=== PATIENT | male | born 1935 | race Caucasian/White ===

== ENCOUNTER 2018-07-16 08:30 | Emergency (ER) | payer MEDICARE ==
--- NOTE | 2018-07-16 09:21 | RAD ---
2 VIEWS OF ABDOMEN: Date: 07/16/18 COMPARISON: None. HISTORY: Left-sided flank pain. FINDINGS: Supine and decubitus views of the abdomen show a nonspecific, nonobstructed bowel gas pattern. No joel e air or air fluid levels are seen on decubitus film. No suspicious calcifications are present. IMPRESSION: Nonobstructed bowel gas pattern. POS: [facility]
[2018-07-16] MEDS ORDERED: Bisacodyl 10 MG SUPP ONE (10:28)
[2018-07-16] MEDS ORDERED: Lidocaine Viscous Sol 2% 15 ml UD Cup ONE (10:28)
[2018-07-16] MEDS ORDERED: Magnesium Citrate 300 ML BOT ONE (12:38)
== END 2018-07-16 13:49 | disposition home or self-care (01) ==
LOC: ERS 08:30
DX: K59.00 Constipation, unspecified (principal); I25.2 Old myocardial infarction; I11.0 Hypertensive heart disease with heart failure; I50.9 Heart failure, unspecified; Z79.899 Other long term (current) drug therapy
CPT/HCPCS: 74019; 93005

== ENCOUNTER 2018-09-10 09:07 | Inpatient (IN) | payer MEDICARE, MEDICAID ==
--- NOTE | 2018-09-10 09:52 | RAD ---
CHEST 1 VIEW: Date: 09/10/18 HISTORY: Chest pain. COMPARISON: None. FINDINGS: Heart size is markedly enlarged. AICD/pacer is in place. No pneumothorax. No large effusion. Likely a sliding hiatal hernia. Extensive osteolytic foci are present throughout the medullary cavity and involving the cortices of b oth humeri, as well as the clavicles. IMPRESSION: 1. Marked cardiomegaly. 2. Numerous lytic foci throughout both humeri and clavicles. This can be seen with multiple myeloma. Workup is recommended. POS: H
[2018-09-10 10:06] LABS: #Lymphocytes 1.4 thou/uL (1.20-3.40); #Monocytes 0.3 thou/uL (0.11-0.59); #Neutrophils 2.7 thou/uL (1.40-6.50); %Basophils 0.1 % (0.0-1.0); %Eosinophils 0.6 % (0.0-10.0); %Lymphocytes 31.5 % (21.0-51.0); %Neutrophils 60.8 % (42.0-75.0); Hemoglobin 9.7 g/dL (14.0-18.0); Mean Corpuscular HGB CONC 33.5 g/dL (32.0-36.0); Mean Corpuscular Hemoglobin 34.8 pg (27.0-31.0); Red Blood Cell (RBC) Count 2.78 mill/uL (4.70-6.10); White Blood Cell (WBC) Count 4.4 thou/uL (4.8-10.8)
[2018-09-10 10:11] LABS: MDiff Complete? YES; Platelet Morphology Comment Appears Decreased; Polychromasia SLIGHT = 2-3 cells (100X) (0-2/hpf); Rouleaux Formation SLIGHT = 1-5 cells (100X) (None Seen)
[2018-09-10 10:12] LABS: Mean Platelet Volume 8.7 fL (7.4-10.4); Platelet Count 105 thou/uL (130-400); RBC Distribution Width 15.5 % (11.5-14.5)
[2018-09-10 10:22] LABS: ALT (SGPT) 11 U/L (8-55); AST (SGOT) 19 U/L (5-34); Albumin 2.8 g/dL (3.4-4.8); Alkaline Phosphatase 63 U/L (40-150); Anion Gap 18 mmol/L (10-20); BUN (Urea Nitrogen) 44 mg/dL (8.4-25.7); Bilirubin, Total 0.5 mg/dL (0.2-1.2); CK (CPK) 23 U/L (30-200); Calc. Creatinine Clearance 0 mL/min (70-130); Carbon Dioxide 22 mmol/L (23-31); Chloride 100 mmol/L (98-107); Estimated GFR-MDRD 39; Globulin 6.6 g/dL (2.4-3.5); Glucose 108 mg/dL (83-110); Lipase 22 U/L (8-78); Potassium 4.2 mmol/L (3.5-5.1); Protein, Total 9.4 g/dL (5.8-8.1); Sodium 136 mmol/L (136-145)
[2018-09-10 10:28] LABS: Calcium 12.5 mg/dL (7.8-10.44)
[2018-09-10 10:42] LABS: CKMB 1.2 ng/mL (0-6.6)
[2018-09-10] MEDS ORDERED: Nitroglycerin 0.4 MG TAB (25 Tab Bottle) PO PRN (11:01)
--- NOTE | 2018-09-10 11:49 | HP ---
PRIMARY CARE PROVIDER: None. CHIEF COMPLAINT: Chest pain. HISTORY OF PRESENT ILLNESS: Mr. Jacobo is a pleasant 83-year-old gentleman, who was seen at [facility] on September 10, 2018. He moved here from [place] a couple of months ago. He is a resident at [facility]. He reports that he is currently establishing care with a cigar brander, but he is unable to recall the name of the cigar brander and has not seen the cigar brander yet. He was also told to see Dr[facility], but he is not aware as to why. He reports that over the last 2 months his weight went from 174 pounds to 117 pounds. Today, he developed left-sided chest pain. He describes it as sharp, like an electrical impulse, 7/10, only occurring with movement or reaching out and nonradiating. He reports that it improves if he is not moving around. He denies any shortness of breath, fevers, or chills. He denies any nausea or vomiting. He denies any other complaints. REVIEW OF SYSTEMS: All other systems reviewed and found to be negative. PAST MEDICAL HISTORY: Congestive heart failure, myocardial infarction, gastroesophageal reflux disease, benign prostate hypertrophy, and spinal fractures. PAST SURGICAL HISTORY: Coronary artery bypass graft surgery, 5 vessels; AICD placement, 10 months ago in [place]; bilateral rotator cuff repair. SOCIAL HISTORY: Occasional alcohol use. No tobacco use or recreational drug use. FAMILY HISTORY: No family history of malignancy. CODE STATUS: I discussed his code status. He is full code. ALLERGIES: OPIOIDS. CURRENT MEDICATIONS: 1. Metoprolol tartrate 25 mg daily. 2. Docusate 2 capsules 2 times a day. 3. Multivitamins 1 tablet daily. 4. Arginaid powder 2 g daily. 5. Vitamin C 500 mg 2 times daily. 6. Nexium 20 mg daily. 7. Entresto 12/23 mg 2 times a day. 8. Tamsulosin 0.4 mg daily. 9. Aspirin 81 mg daily. PHYSICAL EXAMINATION: GENERAL: On examination, Mr. Jacobo is awake and alert, not in acute distress. VITAL SIGNS: Blood pressure is 94/62, pulse 72, respiratory rate 13, and oxygen saturation 100% on room air. He is afebrile. EYES: No scleral icterus. No conjunctival pallor. ENT: Moist mucosal membranes. No oropharyngeal erythema or exudates. NECK: Supple and nontender. Trachea is midline. RESPIRATORY: Accessory muscles of breathing are not active. Chest wall movements are symmetric bilaterally. Lungs are clear to auscultation without wheeze, rhonchi, or crepitations. CARDIOVASCULAR: S1 and S2 are heard, regular. Peripheral pulses palpable. No carotid bruit. No pericardial rub. He has reproducible left chest wall tenderness. ABDOMEN: Soft and nontender. Bowel sounds are heard. No hepatomegaly. No splenomegaly. MUSCULOSKELETAL: Reproducible chest wall tenderness. The patient has power of 5/5 in all 4 extremities. SKIN: No rashes or subcutaneous nodules. LYMPHATIC: No cervical lymphadenopathy. PSYCHIATRIC: Normal mood and normal affect. The patient is oriented to person, place, and time. LABORATORY DATA: Mr. Jacobo's labs and investigations were reviewed. I reviewed his electrocardiogram, which shows electronic ventricular paced rhythm and no ST changes to suggest an acute coronary syndrome. I also reviewed his chest x-ray, which shows cardiomegaly and numerous lytic foci throughout both humeri and clavicles. He has pancytopenia with white count of 4400, macrocytic anemia with hemoglobin 9.7, and thrombocytopenia with platelet count of 105. He also has slight rouleaux formation. Sodium and potassium are normal. Creatinine is elevated at 1.69, corrected calcium for albumin is elevated at 13.5, and albumin is decreased at 2.8. Total bilirubin, AST, ALT, and alkaline phosphatase are normal. Troponin I is indeterminate at 0.046. BNP is elevated at 920. Lipase is normal at 22. ASSESSMENT AND PLAN: Mr. Jacobo is a pleasant 83-year-old gentleman, who was seen at [facility] on September 10, 2018. His problem list includes: 1. Chest pain: His chest pain is very atypical for coronary artery disease. It is reproducible with palpation, most likely secondary to bone lesions from suspected multiple myeloma. We will recheck his troponin. We will monitor him on telemetry. We will also consult Cardiology Service since the patient is wishing to establish cardiology care in this area. 2. Multiple myeloma: Suspected. We will check skeletal survey. We will consult Oncology Service for opinion and help with management. 3. Hypercalcemia: The patient has a history of congestive heart failure. Therefore, I am unable to give him aggressive intravenous fluids. We will administer zoledronic acid as well as calcitonin and recheck his calcium level. 4. Gastroesophageal reflux disease: Appears to be stable. Continue proton pump inhibitor. 5. Benign prostate hypertrophy: Appears to be stable. 6. Pancytopenia: The patient will need investigations to rule out malignancy. Many thanks for allowing me to participate in Mr. Jacobo's care. Please feel free to contact me with any questions or concerns. LEVEL OF RISK: High. LEVEL OF COMPLEXITY: High. Job ID: [id number]
[2018-09-10] MEDS ORDERED: Zoledronic Acid 4 MG in Sodium Chloride 0.9% 100 ML IVPB SCH (12:00)
[2018-09-10] MEDS ORDERED: Calcitonin,Salmon,Synthetic 200 UNITS/ML SC SCH (12:00)
--- NOTE | 2018-09-10 13:30 | RAD ---
BONE SURVEY: INDICATIONS: Multiple myeloma. TECHNIQUE: Total of 20 images. FINDINGS: The images of the skull show no focal lytic process. The images of the cervical, thoracic, and lumbar spine obtained. There are compression deformities i nvolving the lower thoracic and lumbar spine. Prominent degenerative changes. Grade 1 spondylolisth esis with loss of disk space at L5-S1. Mild areas of lucency involving the thoracic and lumbar verte brae may represent changes of multiple myeloma. The upper extremities are obtained. Images of both humeri show numerous focal lytic lesions involvin g the proximal mid humerus bilaterally, consistent with changes of multiple myeloma. There are lytic lesions involving the proximal ulna on the right and probably in the proximal ulna on the left, cons istent with multiple myeloma. AP pelvis shows numerous areas of lytic foci involving the bony pelvis and hip, consistent with multi ple myeloma. Bilateral femurs reveal numerous lytic lesions involving the proximal and mid femurs, which would be consistent with the history of multiple myeloma. The tibia and fibula show lytic process involving the proximal and mid left tibia. IMPRESSION: There are numerous lytic lesions seen throughout the skeletal system, most pronounced involving the p roximal humeri, femurs, and bony pelvis. Findings would be consistent with the history of multiple m yeloma. POS: [facility]
[2018-09-10 16:29] LABS: Troponin I 0.036 ng/mL (< 0.028)
[2018-09-10 20:07] VITALS: BMI 20.9
[2018-09-10] MEDS: Metoprolol Tartrate 25 MG TAB PO SCH (20:12)
--- NOTE | 2018-09-10 22:40 | CON ---
DATE OF CONSULTATION: REASON FOR CONSULTATION: Multiple myeloma. HISTORY OF PRESENT ILLNESS: Mr. Jacobo is an 83-year-old gentleman, who was seen by Dr. Gallo on September 04, 2018 for pancytopenia and elevated protein. He had a serum protein electrophoresis done on a recent hospitalization that showed an M spike of 2.4. Random urine specimen detected a monoclonal protein. He had a quantitative immunoglobulins and IgA was markedly elevated at 4339. He was diagnosed with IgA multiple myeloma. He was due for a bone marrow biopsy to confirm diagnosis. This was scheduled in our clinic for tomorrow. Today, he presented to the emergency room with chest pain. He does have a significant history of coronary artery disease and CO. He also has a defibrillator in place with a recent EF of 25% to 30%. He is being admitted for cardiac workup. In the emergency room today, his white count was 4.4, hemoglobin was 9.7, and platelet count was 105,000. His creatinine was elevated at 1.69, calcium was 12.5, BNP was 920.5. His total protein was 9.4, albumin 2.8, globulin 6.6. He did receive gentle hydration and received a dose of calcitonin and Zometa. Currently, he complains of chest discomfort and back pain. PAST MEDICAL HISTORY: 1. Hypertension. 2. Myocardial infarction. 3. Coronary artery disease. 4. Hyperlipidemia. 5. Arthritis. 6. Asthma. 7. Anemia. 8. GERD. 9. Chronic back pain with compression fractures. PAST SURGICAL HISTORY: 1. Defibrillator placement. 2. CABG. 3. Right shoulder rotator cuff repair. ALLERGIES: OPIOIDS. HOME MEDICATIONS: 1. Amlodipine 2.5 mg daily. 2. Aspirin 81 mg daily. 3. Esomeprazole 20 mg daily. 4. Lisinopril 20 mg daily. 5. Metoprolol tartrate 50 mg daily. 6. Flomax 0.4 mg daily. FAMILY HISTORY: No family history of blood disorder or cancer. SOCIAL HISTORY: , has 1 child. Resides in skilled nursing. No alcohol, tobacco, or illicit drug use. 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 REVIEW OF SYSTEMS: Positive for chest pain, palpitations, back pain. PHYSICAL EXAMINATION: VITAL SIGNS: Temperature is 97.4, pulse is 74, respiratory rate 16, blood pressure is 117/68, and sats 94% on room air. GENERAL: This is a chronically ill-appearing male, in no acute distress. HEENT: Normocephalic and atraumatic. Pupils are equal and reactive to light. NECK: Supple. CV: Regular rate and rhythm. He has a defibrillator in his left chest wall. LUNGS: Clear anterior. ABDOMEN: Soft and nontender. There is no organomegaly. Bowel sounds are positive. EXTREMITIES: No clubbing, cyanosis, or edema. SKIN: No rash. HEMATOLOGICAL: There is no petechiae or purpura. NEUROLOGIC: Nonfocal. PSYCH: The patient is alert and oriented and appropriate. PERTINENT LABS AND X-RAYS: Per HPI. His skeletal survey showed lytic lesions throughout, most pronounced in the proximal humeri, femur, and pelvis. ASSESSMENT: 1. IgA multiple myeloma. 2. Chest pain. 3. Hypercalcemia secondary to lytic lesions. 4. Pancytopenia secondary to newly diagnosed myeloma. DISCUSSION: The patient will be admitted for chest pain and once this workup is completed and the patient is stable, would recommend getting a bone marrow biopsy to confirm his myeloma diagnosis. His hypercalcemia has been treated with Zometa and calcitonin. We would continue supportive care at this time. Thank you for the consult. We will follow his hospital course. Job ID: [id number]
[2018-09-11 06:57] LABS: #Lymphocytes 0.9 thou/uL (1.20-3.40); #Monocytes 0.3 thou/uL (0.11-0.59); #Neutrophils 2.7 thou/uL (1.40-6.50); %Basophils 0.1 % (0.0-1.0); %Eosinophils 0.2 % (0.0-10.0); %Lymphocytes 22.8 % (21.0-51.0); %Monocytes 7.8 % (0.0-10.0); %Neutrophils 69.1 % (42.0-75.0); Hemoglobin 9.1 g/dL (14.0-18.0); Mean Corpuscular HGB CONC 33.4 g/dL (32.0-36.0); Mean Corpuscular Hemoglobin 34.2 pg (27.0-31.0); Mean Platelet Volume 9.1 fL (7.4-10.4); Platelet Count 108 thou/uL (130-400); RBC Distribution Width 15.4 % (11.5-14.5); Red Blood Cell (RBC) Count 2.65 mill/uL (4.70-6.10); White Blood Cell (WBC) Count 3.9 thou/uL (4.8-10.8)
[2018-09-11 07:23] LABS: Anion Gap 16 mmol/L (10-20); BUN (Urea Nitrogen) 36 mg/dL (8.4-25.7); Calc. Creatinine Clearance 34 mL/min (70-130); Calcium 11.1 mg/dL (7.8-10.44); Carbon Dioxide 26 mmol/L (23-31); Chloride 101 mmol/L (98-107); Estimated GFR-MDRD 54; Glucose 96 mg/dL (83-110); Potassium 3.8 mmol/L (3.5-5.1); Sodium 139 mmol/L (136-145)
[2018-09-11] MEDS: Metoprolol Tartrate 25 MG TAB PO SCH ×2 (09:12→20:20)
[2018-09-11] MEDS: Aspirin 81 mg Enteric Coated Tablet PO SCH (09:12)
[2018-09-11] MEDS: Tamsulosin HCl 0.4 MG CAP PO SCH (09:12)
[2018-09-11] MEDS ORDERED: Bisacodyl 5 MG TAB PO PRN (09:41)
--- NOTE | 2018-09-11 12:57 | PDOC.PN ---
- Subjective Encounter Start Date: 09/11/18 Encounter Start Time: 11:00 CC; CHEST PAIN SUBJECTIVE; PATIENT SEEN AND EVAL. HE REFERS CONSTIPATION. PER NURSE, NO OTHER ACUTE EVENTS. ROS; ALL SYSTEMS ARE REVIEWED AND NEGATIVE EXCEPT FOR THE ONES MENTIONED ABOVE - Objective FULL CODE MAR Reviewed: Yes Vital Signs & Weight: Vital Signs (12 hours) Temp Pulse Resp BP Pulse Ox 09/11/18 08:00 97.6 F 74 18 110/68 97 09/11/18 03:45 96.4 F L 88 22 H 120/72 97 Weight Weight 124 lb 1.6 oz I&O: 09/10/18 09/11/18 09/12/18 06:59 06:59 06:59 Intake Total 240 Balance 240 Result Diagrams: 09/11/18 06:21 09/11/18 06:21 Radiology Reviewed by me: Yes EKG Reviewed by me: Yes Phys Exam - Physical Examination HEENT: PERRLA, moist MMs, sclera anicteric DECREASE TEMPORAL MUSCLE MASS Neck: no nodes, no JVD, supple Respiratory: no wheezing, no rales, no rhonchi, clear to auscultation bilateral Cardiovascular: RRR, no significant murmur, no rub Gastrointestinal: soft, non-tender, no distention, positive bowel sounds Musculoskeletal: no edema, pulses present DECREASED MUSCLE MASS Neurological: non-focal, normal sensation Psychiatric: normal affect, A&O x 3 Skin: no rash, normal turgor, cap refill <2 seconds Deviation from normal: GENERAL PALLOR Dx/Plan (1) Chest pain Code(s): R07.9 - CHEST PAIN, UNSPECIFIED Status: Acute Qualifiers: Chest pain type: unspecified Qualified Code(s): R07.9 - Chest pain, unspecified Plan: ATYPICAL. FREE OF PAIN. CARDIOLOGY FOLLOWS. (2) Hypercalcemia Code(s): E83.52 - HYPERCALCEMIA Status: Acute Plan: HYPERCALCEMIA OF MULTIPLE MYELOMA. NO IVF AND LASIX DUE TO CARDIOMYOPATHY. IMPROVING (3) Pancytopenia Code(s): D61.818 - OTHER PANCYTOPENIA Status: Chronic Plan: OF MULTIPLE MYELOMA. HEMATOLOGY/ONCOLOGY FOLLOWS. BONE MARROW ORDERED (4) Multiple myeloma Code(s): C90.00 - MULTIPLE MYELOMA NOT HAVING ACHIEVED REMISSION Status: Acute Plan: NEW DIAGNOSIS. SEE ABOVE (5) Lytic bone lesions on xray Code(s): M89.9 - DISORDER OF BONE, UNSPECIFIED Status: Acute Plan: NO FRACTURES. SEE ABOVE (6) CAD (coronary artery disease) Code(s): I25.10 - ATHSCL HEART DISEASE OF [place] CORONARY ARTERY W/O ANG PCTRS Status: Chronic Plan: CONTINUE HOME MEDS (7) Cardiomyopathy Code(s): I42.9 - CARDIOMYOPATHY, UNSPECIFIED Status: Chronic Plan: COMPENSATED (8) Severe malnutrition Code(s): E43 - UNSPECIFIED SEVERE PROTEIN-CALORIE MALNUTRITION Status: Chronic Plan: OF CHRONIC ILLNESS (9) Dyslipidemia Code(s): E78.5 - HYPERLIPIDEMIA, UNSPECIFIED Status: Chronic (10) Essential hypertension Code(s): I10 - ESSENTIAL (PRIMARY) HYPERTENSION Status: Chronic Plan: AT GOAL (11) Constipation Code(s): K59.00 - CONSTIPATION, UNSPECIFIED Status: Acute Plan: OF HYPERCALCEMIA. LAXATIVES - Plan cont current plan of care LAXATIVES FOR CONSTIPATION. CONTINUE BP CONTROL. NO IVF AND LASIX FOR HYPERCALCEMIA DUE TO COMPENSATED CARDIOMYOPATHY. CODE; FULL CORE; SCD DISP; TELEMETRY PROG; GUARDED. BACK TENDER [employer] POOR CLINICAL STATUS; GUARDED EXPECTED DISCHARGE; TO BE DETERMINED TOTAL TIME SPENT; 35 MINUTES DATE OF SERVICE; 09/11/2018
--- NOTE | 2018-09-11 14:01 | CON ---
DATE OF CONSULTATION: 09/11/2018 REASON FOR CONSULTATION: ICD discharge and chest pain. HISTORY OF PRESENT ILLNESS: Mr. Jacobo is a very pleasant 83-year-old gentleman, who recently moved from [place]. His history is somewhat vague. It is difficult to pinpoint details to his previous cardiac history. He states he has had CABG x5, 22 years ago. He also states he underwent coronary angiography within the last several months and stated all of his grafts were open. He also states he has had ICD discharge recently. This was confirmed on recent ICD interrogation. He had multiple discharges on 09/10/2018. He also had discharges of his ICD on 08/19/2018 and 08/04/2018. His device was reprogrammed with increased RV output to 2.0. He is currently resting comfortably. PAST MEDICAL HISTORY: Ischemic cardiomyopathy, previous SC, acid reflux, spinal fracture, CABG x5, AICD, rotator cuff repair, myeloma. SOCIAL HISTORY: No current tobacco or alcohol use. He recently moved to the area to be with his daughter. ALLERGIES: OPIOIDS. FAMILY HISTORY: Negative for CAD. REVIEW OF SYSTEMS: Ten-point review of systems is reviewed as above, otherwise negative. HOME MEDICATIONS: Include Flomax, Entresto, aspirin, vitamin C, Nexium, multivitamin, metoprolol. PHYSICAL EXAMINATION: GENERAL: The patient is a pleasant male, who is in no acute distress. The patient appears their stated age. He does appear cachectic. VITAL SIGNS: Blood pressure 110/68, pulse 74, and temperature 97.6. NEUROLOGIC: The patient is alert and oriented x3 with no focal neurologic deficits. HEENT: Sclerae without icterus. Mouth has moist mucous membranes with normal pallor. NECK: No JVD. Carotid upstroke brisk. No bruits bilaterally. LUNGS: Clear to auscultation with unlabored respirations. BACK: No scoliosis or kyphosis. CARDIAC: Regular rate and rhythm with normal S1 and S2. No S3 or S4 noted. No significant rubs, murmurs, thrills, or gallops noted throughout the precordium. PMI is not displaced. There is no parasternal heave. ABDOMEN: Soft, nontender, nondistended. No peritoneal signs present. No hepatosplenomegaly. No abnormal striae. EXTREMITIES: 2+ femoral and 2+ dorsalis pedis pulses. No cyanosis, clubbing, or edema. SKIN: No gross abnormalities. PERTINENT LABORATORY DATA: Hemoglobin 9.1. Creatinine 1.28, calcium 12.5. BNP of 920, peak troponin 0.04. IMPRESSION: 1. Chest pain. 2. ICD discharge. 3. Myeloma. 4. Coronary artery disease. 5. Status post bypass surgery. 6. Ischemic cardiomyopathy. RECOMMENDATIONS: Certainly complex case. First and foremost, I would like to obtain records from [place] to see what has been done over the last several months. At this point, I would likely recommend conservative therapy. His ICD has been reprogrammed, please see above. May consider amiodarone therapy. May also consider sotalol. We will consult with EP for recommendations. He will also need to be set up with EP for ICD management. Job ID: [id number]
[2018-09-11] MEDS: Docusate Calcium (SURFAK) 240 MG CAP PO SCH (20:20)
[2018-09-11] MEDS ORDERED: Docusate 100 MG CAP PO SCH (21:00)
[2018-09-12 05:12] LABS: #Lymphocytes 0.8 thou/uL (1.20-3.40); #Monocytes 0.2 thou/uL (0.11-0.59); #Neutrophils 3.2 thou/uL (1.40-6.50); %Basophils 0.3 % (0.0-1.0); %Eosinophils 0.1 % (0.0-10.0); %Lymphocytes 18.9 % (21.0-51.0); %Monocytes 4.4 % (0.0-10.0); %Neutrophils 76.2 % (42.0-75.0); Hemoglobin 9.3 g/dL (14.0-18.0); Mean Corpuscular HGB CONC 33.4 g/dL (32.0-36.0); Mean Corpuscular Hemoglobin 34.5 pg (27.0-31.0); Platelet Count 103 thou/uL (130-400); RBC Distribution Width 15.5 % (11.5-14.5); White Blood Cell (WBC) Count 4.2 thou/uL (4.8-10.8)
[2018-09-12 05:26] LABS: Anion Gap 17 mmol/L (10-20); BUN (Urea Nitrogen) 31 mg/dL (8.4-25.7); Calc. Creatinine Clearance 36 mL/min (70-130); Calcium 10.3 mg/dL (7.8-10.44); Carbon Dioxide 23 mmol/L (23-31); Chloride 102 mmol/L (98-107); Estimated GFR-MDRD 56; Glucose 101 mg/dL (83-110); Potassium 3.4 mmol/L (3.5-5.1); Sodium 139 mmol/L (136-145)
--- NOTE | 2018-09-12 07:17 | PDOC.CTH ---
Cardiology Progress Note - Objective Vital Signs Temp Pulse Resp BP BP Pulse Ox 09/12/18 03:07 97.7 F 98 18 99/69 98 09/12/18 00:00 95 129/70 09/11/18 20:00 97.5 F L 105 H 18 119/75 100 Weight 124 lb 09/11/18 09/12/18 09/13/18 06:59 06:59 06:59 Intake Total 240 630 Output Total 200 Balance 240 430 - Physical Examination General/Neuro: alert & oriented x3, NAD Neck: carotid US brisk, no JVD present Lungs: unlabored respirations Heart: RRR Abdomen: NT/ND, soft Extremities: + femoral B - Telemetry Telemetry Rhythm: SR - Labs Result Diagrams: 09/12/18 04:10 09/12/18 04:10 Troponin/CKMB CK-MB (CK-2) 1.2 ng/mL (0-6.6) 09/10/18 09:40 Troponin I 0.036 ng/mL (< 0.028) H 09/10/18 15:55 - Assessment/Plan VT ICD discharge CAD s/p CABG Multiple myeloma Chronic kidney disease Recommend conservative treatment Review records from [place] Consult EP on recommendations (sotalol vs amiodaarone)
[2018-09-12 07:18] LABS: INR-International Normal Ratio 1.2; Prothrombin Time 15.5 SEC (12.0-14.7)
[2018-09-12 07:19] LABS: PTT 40.9 SEC (22.9-36.1)
[2018-09-12] MEDS: Aspirin 81 mg Enteric Coated Tablet PO SCH (08:54)
[2018-09-12] MEDS: Metoprolol Tartrate 25 MG TAB PO SCH (08:54)
[2018-09-12] MEDS: Tamsulosin HCl 0.4 MG CAP PO SCH (08:54)
[2018-09-12] MEDS: Docusate Calcium (SURFAK) 240 MG CAP PO SCH (08:55)
[2018-09-12] MEDS ORDERED: Aspirin Chewable 81 MG TAB PO SCH (09:00)
[2018-09-12] MEDS ORDERED: Metoprolol Tartrate 25 MG TAB PO SCH (09:00)
[2018-09-12] MEDS ORDERED: Tamsulosin HCl 0.4 MG CAP PO SCH (09:00)
[2018-09-12] MEDS ORDERED: ESOMEPRAZOLE MAGNESIUM 20 MG PO SCH (09:00)
[2018-09-12] MEDS ORDERED: Fentanyl 100 MCG/2 ML VIAL ONE (09:54)
[2018-09-12] MEDS ORDERED: Midazolam HCl 2 mg/2 ml Vial ONE (09:55)
[2018-09-12 12:30] VITALS: BP 98/58; TEMP 97.2
--- NOTE | 2018-09-12 16:33 | CT ---
EXAM: CT Deep Bone Perc Biopsy PROVIDED CLINICAL HISTORY: Multiple myeloma. COMPARISON: None TECHNIQUE: After informed consent was obtained, patient was placed on the CT scan table in prone position. Limit ed noncontrast CT scan was obtained through the pelvis with grid localizer in place. Initial images demonstrated a soft tissue lesion in the left iliac bone. This finding was discussed with BARRY Walsh at this time. A bone marrow aspiration of the right iliac bone was requested as opposed to biopsy of the lesion in the right iliac bone. An area overlying the right iliac bone was marked, and the area was meticulously prepped and draped in usual sterile fashion. Skin and subcutaneous tissues were infiltrated with buffered 1% lidocaine for local anesthesia at the intended puncture site. Small skin incision was made. An 11-gauge bone biopsy needle was advanced to the cortex and positioning was confirmed with axial CT images. Needle was advanced, and bone marro w aspirate was obtained. Approximately 10 mL of bone marrow aspirate was obtained. 2 separate attempts at obtaining a bone marrow biopsy were unsuccessful likely related to the significant osteop enia. Hemostasis was achieved with direct pressure. Dry sterile dressing was placed at puncture site. Patient tolerated the procedure well and without im mediate complication. IMPRESSION: 1. Technically successful CT-guided percutaneous bone marrow aspiration right iliac bone. A bone biop sy was unable to be obtained after 2 separate attempts which may be related to diffuse osteopenia. 2. Soft tissue density lesion in the right iliac bone with interval destruction of the adjacent shari x. 3. Above findings discussed with BARRY Obando at the termination of this exam.
--- NOTE | 2018-09-12 16:59 | CON ---
DATE OF CONSULTATION: 09/12/2018 ADDITIONAL REFERRING PHYSICIAN: Dr. Mumtaz Lilly. HISTORY OF PRESENT ILLNESS: I am seeing Mr. Jacobo at our [facility] Telemetry Floor as an Electrophysiology sourcing consultant regarding his ventricular arrhythmias. His problems are from: 1. Recurrent ventricular tachycardia episodes, responding to ATP, but at least two episodes requiring shock termination. 2. Adequately functioning Bi-V ICD by [employer], implanted in [place] in February 2017. a. Remote history of myocardial infarction. b. History of coronary artery bypass grafting x5 vessels. c. Newly found myeloma with significant weight loss. d. Atypical chest pains and ICD site veins without obvious infection. 3. Chronic systolic congestive heart failure with ischemic cardiomyopathy. a. Reduced LVEF by 2D echo on 08/20/2018 at 29% to 30%, mild LVH, [id number] mitral regurgitation. ALLERGIES: OPIOIDS. MEDICATIONS: Medications at home include metoprolol, docusate, multivitamin, Arginaid powder, vitamin C, Nexium, Entresto, tamsulosin, aspirin. SUBJECTIVE: Mr. Jacobo is here with an episode of ICD discharge. He got dizzy, lightheaded, might have passed out shortly. Subsequently, he came to the ER. He has also left-sided chest pains. They are sharp, nonradiating, positional, not typical for angina. Also some discomfort at the ICD site, he is mentioning, which is also recent. Denies warmth or other signs of infection at the site. He has no stroke-like symptoms. No neurological deficits. At this point, there are no obvious symptoms of PND or orthopnea. He has no fever, chills, or cough. No burning urination. No abdominal discomfort. Rest of 12-point systems otherwise unremarkable. PAST MEDICAL HISTORY: As above. SOCIAL HISTORY: The patient denies smoking, EtOH, or drug abuse. The patient used to live in [place] independently, but more recently moved to town due to his illnesses and move to our skilled nursing facility. His daughter is also in town. FAMILY HISTORY: Not contributory. OBJECTIVE DATA: VITAL SIGNS: Blood pressure is 99/69, heart rate 98, respirations 18, temperature 97.7 degrees Fahrenheit. GENERAL: Alert and oriented man, in no apparent distress. NECK: Supple. Jugular veins not distended. CHEST: Coarse without crackles. HEART: Heart sounds are regular to rate and rhythm. No murmur or gallop. Left precordial ICD insertion site is well healed. ABDOMEN: Benign. Bowel sounds positive. EXTREMITIES: Lower extremity without edema, clubbing, or cyanosis. Pulses are adequate. NEUROLOGIC: The patient is nonfocal. MUSCULOSKELETAL: No joint swelling or deformity. SKIN: Without rash. DATABASE: EKGs reviewed revealing atrioventricular paced rhythm. The QTc is 534 msec, but the QRS is wide, also at 174 msec. The ICD interrogation reviewed revealing adequately functioning [employer] Bi-V ICD, battery longevity 4.9 years, original implant date February 2017. Capture thresholds are adequate. Impedances 360, 360, and 510 ohms respectively. The patient has multiple VT events, which were some pace-terminated, but two at least received ICD shock. The electrograms reveal true ventricular tachyarrhythmias with varying cycle length, appears to be mostly monomorphic. The Bi-V pacing percentage is 86%. LABORATORY DATA: White count is 4.2, hemoglobin 9.3, platelet count is 103. INR 1.2, PTT 30.9. Sodium 139, potassium 3.4, BUN is 31, creatinine is 1.2. The troponin levels are 0.046, 0.03, 0.036. BNP was 920. The initial AST and ALT are 19 and 11. TSH is pending. Albumin is 2.8, globulin is 6.6, total protein 9.4. ASSESSMENT AND PLAN: Mr. Jacobo is a pleasant 83-year-old gentleman with history of ischemic cardiomyopathy, biventricular implantable cardioverter-defibrillator in place, who has suffered an implantable cardioverter-defibrillator shock. Episode not clearly provoked by angina or heart failure exacerbation, albeit he got atypical chest pains and mild BNP elevation. 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 The ventricular tachycardia episodes are seem to be appropriately detected and treated by the ICD. Nevertheless, concern for future recurrences are still there. Hence, his overall clinical status, obvious oncologic issues, I think aggressive medical therapy is advised. I would recommend p.o., possibly IV amiodarone loading if necessary depending on the response. EKG checks are advised. I have discussed the rationale for this, also risk of proarrhythmia and amiodarone-related side effects including thyroid, pulmonary, liver, ocular issues were discussed with him. He understands. We will initiate the amiodarone loading. Periodic liver enzymes, thyroid checks, lung function tests will be advised. Case was discussed with Dr. Lilly. Job ID: [id number]
--- NOTE | 2018-09-12 19:24 | DIS ---
DATE OF ADMISSION: 09/10/2018 DATE OF DISCHARGE: 09/12/2018 ADMITTING PHYSICIAN: Dr. Pruitt. DISCHARGE PHYSICIAN: Dr. Loo. PRIMARY CARE PHYSICIAN: Dr. Emerson Foster. ADMITTING DIAGNOSES: 1. Chest pain. 2. Multiple myeloma. 3. Hypercalcemia. 4. Gastroesophageal reflux disease. 5. Benign prostatic hyperplasia. 6. Pancytopenia. DISCHARGE DIAGNOSES: 1. Probable multiple myeloma status post bone marrow biopsy: Follow up with Oncology in the office. 2. Chest pain: Atypical. Resolved. 3. Hypercalcemia of multiple myeloma: Resolved. 4. Constipation of hypercalcemia: Resolved. 5. Pancytopenia of probable multiple myeloma. 6. Lytic bone lesions on bone scan. 7. Ischemic dilated cardiomyopathy: Compensated. 8. Coronary artery disease. 9. Severe malnutrition. 10. Dyslipidemia. 11. Essential hypertension. CONSULTS: Oncology and Cardiology. PROCEDURES: Bone marrow biopsy. SPECIAL IMAGING: Bone scan. HOSPITAL COURSE: An 83-year-old male with history of cardiomyopathy, coronary artery disease, combined congestive heart failure, hyperlipidemia, who came from [facility] for chest discomfort. He was admitted with diagnoses above. He was noticed to have pancytopenia and hypercalcemia. Bone scan showed lytic lesions present in several bones. Oncology was consulted due to high suspicion for multiple myeloma. The patient underwent bone marrow biopsy without complications. He also reported constipation throughout the hospitalization, but he received laxatives with resolution of the constipation. The hypercalcemia resolved and he is going to be following with Oncology next week. He is stable for discharge back to the snf. PHYSICAL EXAMINATION: VITAL SIGNS: Blood pressure 131/66, pulse 81, respirations 17, oxygen saturation 98% on room air, temperature 97.5 Fahrenheit. GENERAL: No distress. Alert and oriented in person and place. HEAD AND NECK: Pupils are equal, reactive to light. Extraocular muscles intact. Mucous membranes are moist. Neck is supple. CARDIOVASCULAR: Rhythm and rate are regular. No audible murmurs, rubs, or gallops. PULMONARY: Clear to auscultation bilaterally. No wheezes, rhonchi, or crackles. ABDOMEN: Soft, nontender, nondistended, positive bowel sounds. EXTREMITIES: No edema. Pulses are symmetric. Capillary refill is less than 3 seconds. Range of motion is intact. SKIN: Generalized pallor. Good moist. NEUROLOGIC: Cranial nerves 2 through 12 are grossly intact. Deep tendon reflexes are normoreflexic. LABORATORY ABNORMALITIES: Hemoglobin 9.3, hematocrit 28, MCV 103. Chemistries within normal limits. DISCHARGE DISPOSITION: care home. DISCHARGE CONDITION: Fair by high risk for readmission and mortality. DISCHARGE DIET: Cardiac diet as tolerated. DISCHARGE ACTIVITY: Increase activity as tolerated. Avoid falls. DISCHARGE MEDICATIONS: See medical reconciliation for details. DISCHARGE FOLLOWUP: With Dr. Gallo in one week. DISCHARGE INSTRUCTIONS: The patient was instructed to return to the emergency department if symptoms become worrisome. Take his medications as directed and not to miss any appointments. TIME OF DISCHARGE AND PLANNIN minutes. Job ID: [id number]
== END 2018-09-12 15:40 | DRG 823 ==
LOC: ERS 09:07 → ERHOLD 11:10 → 2NO 20:04
PROVIDERS: ADMIT Internal Medicine; ATTEND Internal Medicine
PROC: 0QB33ZX Excision of Left Pelvic Bone, Percutaneous Approach, Diagnostic (ICD-10-PCS; principal; 2018-09-12)
DX: C90.00 Multiple myeloma not having achieved remission (principal); E43 Unspecified severe protein-calorie malnutrition; D61.818 Other pancytopenia; I13.0 Hypertensive heart and chronic kidney disease with heart failure and stage 1 through stage 4 chronic kidney disease, or unspecified chronic kidney disease; I50.42 Chronic combined systolic (congestive) and diastolic (congestive) heart failure; K21.9 Gastro-esophageal reflux disease without esophagitis; N40.0 Benign prostatic hyperplasia without lower urinary tract symptoms; D53.9 Nutritional anemia, unspecified; D69.6 Thrombocytopenia, unspecified; E83.52 Hypercalcemia; I25.10 Atherosclerotic heart disease of native coronary artery without angina pectoris; M19.90 Unspecified osteoarthritis, unspecified site; J45.909 Unspecified asthma, uncomplicated; E78.5 Hyperlipidemia, unspecified; K59.00 Constipation, unspecified; I25.5 Ischemic cardiomyopathy; I34.0 Nonrheumatic mitral (valve) insufficiency; N18.9 Chronic kidney disease, unspecified; I25.2 Old myocardial infarction; Z79.82 Long term (current) use of aspirin; Z88.5 Allergy status to narcotic agent; Z95.1 Presence of aortocoronary bypass graft; Z95.810 Presence of automatic (implantable) cardiac defibrillator; Z79.899 Other long term (current) drug therapy; Z68.20 Body mass index [BMI] 20.0-20.9, adult
CPT/HCPCS: 20225; 36415; 71045; 77002; 77075; 80048; 80053; 82550; 82553; 83690; 83880; 84134; 84484; 85025; 85610; 85730; 88184; 88237; 88264; 88280; 88365; 93005; 94760; 96360; 96361; J0630; J2250; J3010; J3489; J3490

== ENCOUNTER 2018-10-02 09:15 | Day surgery (SDC) | payer MEDICARE, MEDICAID ==
[~2018-10-02 09:15] MED LIST: Bortezomib 3.5 MG SDV VIAL SC SCH; Dexamethasone 4 MG TAB PO SCH; valACYclovir 500 MG TAB PO SCH
[2018-10-02 09:40] VITALS: BP 111/62; TEMP 98
== END 2018-10-02 15:27 ==
LOC: ONC/OP 09:15
PROVIDERS: ATTEND Internal Medicine Hematology & Oncology
DX: Z51.11 Encounter for antineoplastic chemotherapy (principal); C90.00 Multiple myeloma not having achieved remission; C79.51 Secondary malignant neoplasm of bone; Z88.5 Allergy status to narcotic agent
CPT/HCPCS: 96401; J2001; J9041

== ENCOUNTER 2018-10-09 10:56 | Day surgery (SDC) | payer MEDICARE, MEDICAID ==
[~2018-10-09 10:56] MED LIST changes: -Bortezomib 3.5 MG SDV VIAL SC SCH; +Cyanocobalamin 1000 MCG/ML VIAL SC SCH; -Dexamethasone 4 MG TAB PO SCH; +Zoledronic Acid 3 MG in Sodium Chloride 0.9% 100 ML IVPB SCH; -valACYclovir 500 MG TAB PO SCH
[2018-10-09] MEDS ORDERED: Sodium Chloride 0.9% 20 ML ONE (11:37)
[2018-10-09 11:49] LABS: #Lymphocytes 0.5 thou/uL (1.20-3.40); #Monocytes 0.1 thou/uL (0.11-0.59); #Neutrophils 2.5 thou/uL (1.40-6.50); %Eosinophils 0.2 % (0.0-10.0); %Lymphocytes 16.4 % (21.0-51.0); %Monocytes 1.8 % (0.0-10.0); %Neutrophils 81.6 % (42.0-75.0); Hemoglobin 8.3 g/dL (14.0-18.0); Mean Corpuscular HGB CONC 33.3 g/dL (32.0-36.0); Mean Corpuscular Hemoglobin 35.5 pg (27.0-31.0); Mean Platelet Volume 9.1 fL (7.4-10.4); Platelet Count 154 thou/uL (130-400); RBC Distribution Width 16.5 % (11.5-14.5); Red Blood Cell (RBC) Count 2.34 mill/uL (4.70-6.10); White Blood Cell (WBC) Count 3.1 thou/uL (4.8-10.8)
[2018-10-09 11:57] VITALS: BP 110/55; TEMP 97.2
[2018-10-09 12:44] LABS: MDiff Complete? YES; Platelet Morphology Comment Appears Adequate; Rouleaux Formation MARKED = >16 cells (100X) (None Seen)
== END 2018-10-09 14:04 ==
LOC: ONC/OP 10:56
PROVIDERS: ATTEND Internal Medicine Hematology & Oncology
DX: Z51.11 Encounter for antineoplastic chemotherapy (principal); C90.00 Multiple myeloma not having achieved remission; C79.51 Secondary malignant neoplasm of bone; Z88.6 Allergy status to analgesic agent
CPT/HCPCS: 82565; 85025; 96365; 96372; 96401; J3420; J3489; J3490; J9041

== ENCOUNTER 2018-10-16 11:54 | Day surgery (SDC) | payer MEDICARE, MEDICAID ==
[~2018-10-16 11:54] MED LIST changes: -Cyanocobalamin 1000 MCG/ML VIAL SC SCH; +Dexamethasone 4 MG TAB PO SCH; -Zoledronic Acid 3 MG in Sodium Chloride 0.9% 100 ML IVPB SCH
[2018-10-16 12:33] VITALS: BP 107/56; TEMP 97.4
== END 2018-10-16 12:33 ==
LOC: ONC/OP 11:54
PROVIDERS: ATTEND Internal Medicine Hematology & Oncology
DX: Z51.11 Encounter for antineoplastic chemotherapy (principal); C90.00 Multiple myeloma not having achieved remission; C79.51 Secondary malignant neoplasm of bone; Z88.5 Allergy status to narcotic agent
CPT/HCPCS: 96401; J9041

== ENCOUNTER 2018-10-17 06:22 | Day surgery (SDC) | payer MEDICARE, MEDICAID ==
--- NOTE | 2018-10-17 11:01 | OP ---
DATE OF PROCEDURE: 10/17/2018 PROCEDURE PERFORMED: Esophagogastroduodenoscopy (diagnostic). INDICATION FOR PROCEDURE: Dysphagia. DESCRIPTION OF PROCEDURE: After the risks and benefits of the procedure were explained to the patient including risks of bleeding, infection, perforation, reactions to anesthesia, aspiration, and/or pain, informed consent was obtained. The patient was then taken to the endoscopy suite, where deep sedation was administered via propofol and anesthesia support. Once adequate sedation was achieved, the standard gastroscope was introduced into the mouth with intubation of the esophagus, stomach, and the proximal small intestines with the findings listed below. The patient tolerated the procedure well with no immediate perioperative complications. Upon conclusion of the procedure, all equipment was removed from the patient and he was transferred to Day Stay in satisfactory condition. FINDINGS: Esophagus. Normal-appearing mucosa was seen in the proximal, mid, and distal esophagus. A hiatal hernia was seen in the distal esophagus as well with the diaphragmatic pinch was seen at 40 cm, while the gastroesophageal junction was well seen at 30 cm, denoting a 10 cm hiatal hernia. Otherwise, there was no evidence of erosions, ulcerations, mass, lesions, or active/recent bleeding. Stomach. Normal-appearing mucosa was seen in the gastric cardia, fundus, body, antrum, greater curvature, and incisura. A large hiatal hernia was seen on gastric retroflexion. There was no evidence of erosions, ulcerations, mass, lesions, or active/recent bleeding. Duodenum. Normal-appearing mucosa was seen in the duodenal bulb and second portion of the duodenum. There was no evidence of erosions, ulcerations, mass, lesions, or active/recent bleeding. IMPRESSION: 1. A large 10 cm hiatal hernia was seen in the distal esophagus. 2. Otherwise, normal upper endoscopy without any evidence of stricture or stenosis contributing to his dysphagia. RECOMMENDATIONS: 1. Given the presence of a large hiatal hernia, it could potentially create dysphagia symptoms, but would require surgical evaluation for correction. 2. We have the patient continue to follow speech pathology recommendations given his significant improvement in his dysphagia. 3. We would have the patient follow up in the GI Clinic in 3 to 4 weeks for followup on his dysphagia and constipation. Job ID: [id number]
[2018-10-17] MEDS ORDERED: PROPOFOL 200 MG/20 ML VIAL ONE (15:25)
== END 2018-10-17 10:03 | disposition home or self-care (01) ==
LOC: SDC 06:22
PROVIDERS: ATTEND Internal Medicine
PROC: 0DJ08ZZ Inspection of Upper Intestinal Tract, Via Natural or Artificial Opening Endoscopic (ICD-10-PCS; principal; 2018-10-17)
DX: R13.10 Dysphagia, unspecified (principal); K44.9 Diaphragmatic hernia without obstruction or gangrene; K21.9 Gastro-esophageal reflux disease without esophagitis; K59.09 Other constipation; I25.10 Atherosclerotic heart disease of native coronary artery without angina pectoris; I10 Essential (primary) hypertension; R63.4 Abnormal weight loss; Z68.21 Body mass index [BMI] 21.0-21.9, adult; Z85.79 Personal history of other malignant neoplasms of lymphoid, hematopoietic and related tissues; Z79.82 Long term (current) use of aspirin; Z79.899 Other long term (current) drug therapy; Z88.5 Allergy status to narcotic agent; Z95.1 Presence of aortocoronary bypass graft
CPT/HCPCS: 93005; 93010; J2704

== ENCOUNTER 2018-10-23 12:33 | Day surgery (SDC) | payer MEDICARE, MEDICAID ==
[2018-10-23 12:39] VITALS: BP 123/60; TEMP 98
== END 2018-10-23 15:30 ==
LOC: ONC/OP 12:33
PROVIDERS: ATTEND Internal Medicine Hematology & Oncology
DX: Z51.11 Encounter for antineoplastic chemotherapy (principal); C90.00 Multiple myeloma not having achieved remission; C79.51 Secondary malignant neoplasm of bone; Z88.5 Allergy status to narcotic agent
CPT/HCPCS: 36415; 80053; 82248; 83615; 83883; 84100; 84165; 84550; 96401; J9041

== ENCOUNTER 2018-10-30 10:39 | Day surgery (SDC) | payer MEDICARE, MEDICAID ==
[2018-10-30 11:11] LABS: #Lymphocytes 0.6 thou/uL (1.20-3.40); #Monocytes 0.1 thou/uL (0.11-0.59); #Neutrophils 4.2 thou/uL (1.40-6.50); %Eosinophils 0.1 % (0.0-10.0); %Lymphocytes 12.1 % (21.0-51.0); %Neutrophils 86.8 % (42.0-75.0); Hemoglobin 9.6 g/dL (14.0-18.0); Mean Corpuscular HGB CONC 33.5 g/dL (32.0-36.0); Mean Corpuscular Hemoglobin 35.3 pg (27.0-31.0); Mean Platelet Volume 9.2 fL (7.4-10.4); Platelet Count 129 thou/uL (130-400); RBC Distribution Width 15.1 % (11.5-14.5); Red Blood Cell (RBC) Count 2.72 mill/uL (4.70-6.10); White Blood Cell (WBC) Count 4.8 thou/uL (4.8-10.8)
[2018-10-30 11:20] VITALS: BP 114/59; TEMP 97.6
== END 2018-10-30 13:17 | disposition home or self-care (01) ==
LOC: ONC/OP 10:39
PROVIDERS: ATTEND Internal Medicine Hematology & Oncology
DX: Z51.11 Encounter for antineoplastic chemotherapy (principal); C90.00 Multiple myeloma not having achieved remission; C79.51 Secondary malignant neoplasm of bone; Z88.6 Allergy status to analgesic agent
CPT/HCPCS: 85025; 96401; J9041

== ENCOUNTER 2018-11-05 19:46 | Emergency (ER) | payer MEDICARE, MEDICAID ==
[2018-11-05] MEDS ORDERED: HYDROcodone/Acetaminophen 10/325 mg Tablet ONE (20:37)
[2018-11-05 20:42] LABS: #Lymphocytes 0.6 thou/uL (1.20-3.40); #Monocytes 0.3 thou/uL (0.11-0.59); #Neutrophils 2.3 thou/uL (1.40-6.50); %Eosinophils 0.4 % (0.0-10.0); %Lymphocytes 19.3 % (21.0-51.0); %Monocytes 9.1 % (0.0-10.0); %Neutrophils 71.2 % (42.0-75.0); Hemoglobin 9.1 g/dL (14.0-18.0); Mean Corpuscular Hemoglobin 35.9 pg (27.0-31.0); Mean Platelet Volume 8.3 fL (7.4-10.4); Platelet Count 123 thou/uL (130-400); Red Blood Cell (RBC) Count 2.52 mill/uL (4.70-6.10); White Blood Cell (WBC) Count 3.2 thou/uL (4.8-10.8)
[2018-11-05 21:03] LABS: ALT (SGPT) 13 U/L (8-55); AST (SGOT) 14 U/L (5-34); Albumin 3.1 g/dL (3.4-4.8); Alkaline Phosphatase 78 U/L (40-150); Anion Gap 14 mmol/L (10-20); BUN (Urea Nitrogen) 33 mg/dL (8.4-25.7); Bilirubin, Total 0.4 mg/dL (0.2-1.2); Calc. Creatinine Clearance 0 mL/min (70-130); Calcium 8.9 mg/dL (7.8-10.44); Carbon Dioxide 25 mmol/L (23-31); Chloride 99 mmol/L (98-107); Estimated GFR-MDRD 70; Globulin 5.5 g/dL (2.4-3.5); Glucose 107 mg/dL (83-110); Potassium 4.5 mmol/L (3.5-5.1); Protein, Total 8.6 g/dL (5.8-8.1); Sodium 133 mmol/L (136-145)
--- NOTE | 2018-11-05 21:20 | CT ---
CT Brain WO Con HISTORY: Headache COMPARISON: None. FINDINGS: There is generalized ventricular and sulcal prominence. There are no signs of intracerebral hemorrhage or extra-axial fluid collections. The mastoid air cells and visualized sinuses are clear. IMPRESSION: No acute intracranial abnormalities.
[2018-11-05] MEDS ORDERED: valACYclovir 500 MG TAB PO SCH (21:45)
== END 2018-11-05 22:20 | disposition home or self-care (01) ==
LOC: ERS 19:46
DX: B02.9 Zoster without complications (principal); I50.9 Heart failure, unspecified; K21.9 Gastro-esophageal reflux disease without esophagitis; I49.01 Ventricular fibrillation; I25.2 Old myocardial infarction; Z79.82 Long term (current) use of aspirin; Z79.899 Other long term (current) drug therapy
CPT/HCPCS: 36415; 70450; 80053; 85025

== ENCOUNTER 2018-11-27 13:07 | Inpatient (IN) | payer MEDICARE, MEDICAID ==
[2018-11-27 14:23] LABS: #Lymphocytes 0.6 thou/uL (1.20-3.40); #Monocytes 0.1 thou/uL (0.11-0.59); #Neutrophils 5.5 thou/uL (1.40-6.50); %Basophils 0.2 % (0.0-1.0); %Eosinophils 0.2 % (0.0-10.0); %Monocytes 0.9 % (0.0-10.0); %Neutrophils 89.7 % (42.0-75.0); Hemoglobin 9.8 g/dL (14.0-18.0); Mean Corpuscular HGB CONC 32.8 g/dL (32.0-36.0); Mean Corpuscular Hemoglobin 33.9 pg (27.0-31.0); Mean Platelet Volume 8.3 fL (7.4-10.4); Platelet Count 146 thou/uL (130-400); RBC Distribution Width 14.7 % (11.5-14.5); White Blood Cell (WBC) Count 6.1 thou/uL (4.8-10.8)
[2018-11-27 14:25] LABS: INR-International Normal Ratio 1.2; Prothrombin Time 15.4 SEC (12.0-14.7)
[2018-11-27 14:26] LABS: PTT 32.8 SEC (22.9-36.1)
--- NOTE | 2018-11-27 14:30 | RAD ---
SINGLE VIEW OF THE CHEST: 11/27/18 COMPARISON: 09/10/18 HISTORY: Mechanical fall out of bed with left hip fracture. FINDINGS: Single view of the chest shows an enlarged but stable cardiomediastinal silhouette. The patient is st atus post sternotomy. The pacemaker is unchanged in position. There is no evidence of consolidation, mass, or pleural effusion. IMPRESSION: Cardiomegaly. POS: C
[2018-11-27 14:38] LABS: ALT (SGPT) 14 U/L (8-55); AST (SGOT) 22 U/L (5-34); Albumin 3.4 g/dL (3.4-4.8); Alkaline Phosphatase 71 U/L (40-150); Anion Gap 17 mmol/L (10-20); BUN (Urea Nitrogen) 35 mg/dL (8.4-25.7); Bilirubin, Total 0.5 mg/dL (0.2-1.2); CK (CPK) 85 U/L (30-200); Calc. Creatinine Clearance 0 mL/min (70-130); Calcium 9.5 mg/dL (7.8-10.44); Carbon Dioxide 24 mmol/L (23-31); Chloride 98 mmol/L (98-107); Estimated GFR-MDRD 56; Globulin 6.4 g/dL (2.4-3.5); Glucose 150 mg/dL (83-110); Potassium 4.8 mmol/L (3.5-5.1); Protein, Total 9.8 g/dL (5.8-8.1); Sodium 134 mmol/L (136-145)
--- NOTE | 2018-11-27 14:39 | RAD ---
TWO VIEWS OF THE LEFT FEMUR: 11/27/18 HISTORY: Fall out of bed with left hip fracture. FINDINGS: Two views of the left femur shows numerous lytic lesions scattered throughout the bones which are mor e prominent in the femur concerning for either metastatic disease or multiple myeloma. There appears to be a fracture of the proximal left femur. No degenerative changes are seen in the hip. Vascular ca lcifications are present. IMPRESSION: 1. Left proximal femur fracture. 2. Diffuse lytic lesions in the skeleton may represent lytic metastases or multiple myeloma. POS: C
--- NOTE | 2018-11-27 18:07 | HP ---
REQUESTING PHYSICIAN: Mukesh Levy DO. ATTENDING SURGEON: Dr. Molina. CONSULTATIONS: Orthopedics, Dr. Dobbs. HISTORY OF PRESENT ILLNESS: The patient is an 83-year-old man, who reportedly has a history of multiple myeloma and has had fractures in the past. Reportedly, this morning had rolled out of bed, fell, landing on his left hip. He has had immediate pain and discomfort, was brought to the emergency department, where he underwent evaluation and examination, and was noted to have a left subtrochanteric hip fracture, at which time we were asked to evaluate the patient for admission and orthopedic evaluation. The patient denied loss of consciousness. ALLERGIES: THE PATIENT LISTS OPIOIDS, STATES THAT HE DOES NOT LIKE THE WAY THEY MAKE HIM FEEL, BUT IS ABLE TO TAKE HYDROCODONE. CURRENT MEDICATIONS: 1. Amiodarone. 2. Aspirin. 3. Citrucel. 4. Dexamethasone. 5. Docusate. 6. Metoprolol. 7. . 8. MiraLAX. 9. Pantoprazole. 10. Silvadene. 11. Tamsulosin. 12. Tylenol. 13. Valtrex. PAST MEDICAL HISTORY: Multiple myeloma with recent chemo in October of this year, congestive heart failure, dysphagia, myocardial infarction x3, pacemaker, treated with AICD, gastroesophageal reflux disease, and BPH. PAST SURGICAL HISTORY: Right rotator cuff repair, right eye cataract surgery, coronary artery bypass graft x5 vessel, and AICD placement. SOCIAL HISTORY: The patient drinks a glass of wine occasionally. Denies drug or tobacco use. [facility] He ambulates utilizing a cane. REVIEW OF SYSTEMS: A 10-point review of systems is negative as otherwise stated. PHYSICAL EXAMINATION: VITAL SIGNS: Blood pressure 110/71, heart rate 72, respirations 18, oxygen saturation is 96% on room air, and temperature is 97.5. GENERAL: The patient is resting comfortably in bed. He is awake, alert, conversant and appropriate. [place] Coma Scale is 15. HEENT: Head is normocephalic and atraumatic. Eyes, extraocular motion intact. PERRLA bilaterally. Ears are atraumatic without discharge. Nose atraumatic without discharge. Oropharynx is clear. Of note, the patient has a recent history of herpes zoster with some of the lesions on his neck and right side of face. Neck is nontender. Trachea is midline. No JVD. Again, crusted lesions are noted on the right side of his neck. LUNGS: Clear to auscultation with moderate inspiratory and expiratory effort. There was on occasion some scattered wheezes and rhonchi. HEART: Regular rate and rhythm. ABDOMEN: Soft, flat, and nontender with active bowel sounds. PELVIS: Stable with tenderness to palpation to the left hip region consistent with his fracture. EXTREMITIES: Neurovascularly intact x4. BACK: Atraumatic and nontender. Rash again is noted on the right side. LABORATORY FINDINGS: White blood cell count 6.1, hemoglobin 9.8, hematocrit 30.0, platelets and 146. Sodium 134, potassium 4.8, chloride 98, CO2 of 24, BUN 35, creatinine 1.24, glucose 150, and lactic acid 1.5. LFTs are unremarkable. PT 15, INR 1.2, and PTT 33. RADIOGRAPHIC REPORTS: Views of the left femur show left proximal femur fracture and diffuse lytic lesions in the skeleton, may represent lytic metastases or multiple myeloma. AP chest x-ray shows cardiomegaly. ASSESSMENT AND PLAN: 1. Status post mechanical fall. 2. Left proximal femur fracture. 3. History of multiple myeloma. 4. History of significant coronary artery disease, status post coronary artery bypass graft x5 vessels. 5. Pacemaker placement. PLAN: Will be to admit the patient to the surgical floor. We will make him n.p.o. after midnight with plans to go to the operating room tomorrow early afternoon with Orthopedics. The patient will have pain control, pulmonary toilet, gastritis and mechanical VTE prophylaxis. The evaluation, examination, laboratory, and radiographic findings were discussed with Dr. Molina at time of this dictation. Job ID: [id number]
[2018-11-27] MEDS ORDERED: Dextrose 5% in Water 1,000 ML IV PRN (18:08)
[2018-11-27] MEDS ORDERED: Ketorolac Tromethamine 30 MG/ML VIAL IVP SCH (18:08)
[2018-11-27] MEDS ORDERED: Ondansetron PF 4 MG/2 ML Vial IVP PRN (18:08)
[2018-11-27] MEDS ORDERED: traMADol HCl 50 MG TAB PO PRN (18:08)
[2018-11-27] MEDS ORDERED: Acetaminophen 1,000 MG in Premix Bag 1 BAG IVPB SCH (18:08)
[2018-11-27] MEDS ORDERED: Dextrose 50% Abboject 50 ML SYRINGE SLOW IVP PRN (18:08)
[2018-11-27] MEDS ORDERED: Cyclobenzaprine 10 MG TAB PO PRN (18:08)
[2018-11-27] MEDS ORDERED: Ondansetron ODT 4 MG TAB PO PRN (18:08)
[2018-11-27] MEDS ORDERED: Sodium Chloride 0.9% 1,000 ML IV SCH (18:08)
[2018-11-27] MEDS ORDERED: hydrALAZINE 20 MG/ML VIAL SLOW IVP PRN (18:08)
[2018-11-27] MEDS: Sodium Chloride 0.9% 1,000 ML IV SCH (20:47)
[2018-11-27] MEDS: Acetaminophen 1,000 MG in Premix Bag 1 BAG IVPB SCH (20:52)
[2018-11-27] MEDS: Ketorolac Tromethamine 30 MG/ML VIAL IVP SCH (20:58)
[2018-11-27] MEDS ORDERED: Famotidine 20 MG TAB PO SCH (21:00)
[2018-11-28] MEDS: Ketorolac Tromethamine 30 MG/ML VIAL IVP SCH ×4 (04:15→21:30)
[2018-11-28] MEDS: Acetaminophen 1,000 MG in Premix Bag 1 BAG IVPB SCH ×3 (04:18→16:11)
[2018-11-28 05:01] LABS: #Lymphocytes 0.6 thou/uL (1.20-3.40); #Monocytes 0.5 thou/uL (0.11-0.59); #Neutrophils 4.9 thou/uL (1.40-6.50); %Basophils 0.1 % (0.0-1.0); %Eosinophils 0.1 % (0.0-10.0); %Lymphocytes 10.6 % (21.0-51.0); %Neutrophils 81.2 % (42.0-75.0); Hemoglobin 8.9 g/dL (14.0-18.0); Mean Corpuscular HGB CONC 32.6 g/dL (32.0-36.0); Mean Corpuscular Hemoglobin 33.8 pg (27.0-31.0); Mean Platelet Volume 8.7 fL (7.4-10.4); Platelet Count 128 thou/uL (130-400); RBC Distribution Width 14.7 % (11.5-14.5); Red Blood Cell (RBC) Count 2.63 mill/uL (4.70-6.10)
[2018-11-28 05:25] LABS: Anion Gap 14 mmol/L (10-20); BUN (Urea Nitrogen) 39 mg/dL (8.4-25.7); Calc. Creatinine Clearance 37 mL/min (70-130); Calcium 8.9 mg/dL (7.8-10.44); Carbon Dioxide 24 mmol/L (23-31); Chloride 101 mmol/L (98-107); Estimated GFR-MDRD 59; Glucose 103 mg/dL (83-110); Magnesium 1.9 mg/dL (1.6-2.6); Potassium 4.6 mmol/L (3.5-5.1); Sodium 134 mmol/L (136-145)
[2018-11-28 05:26] LABS: Phosphorus 4.2 mg/dL (2.3-4.7)
[2018-11-28 05:34] LABS: CKMB 1.5 ng/mL (0-6.6)
[2018-11-28] MEDS: valACYclovir 500 MG TAB PO SCH ×3 (06:29→21:34)
[2018-11-28] MEDS: Sodium Chloride 0.9% 1,000 ML IV SCH ×2 (06:41→20:15)
[2018-11-28] MEDS ORDERED: CEFAZOLIN 2 GM in Premix Bag 1 BAG IVPB SCH ×2 (07:15→17:31)
[2018-11-28] MEDS: Amiodarone 200 MG TAB PO SCH (09:59)
[2018-11-28] MEDS: Midodrine HCl 5 MG TAB PO SCH ×3 (10:00→21:33)
[2018-11-28] MEDS: Tamsulosin HCl 0.4 MG CAP PO SCH (10:00)
[2018-11-28] MEDS: Metoprolol Tartrate 25 MG TAB PO SCH (10:02)
--- NOTE | 2018-11-28 10:24 | CON ---
DATE OF CONSULTATION: 11/27/2018 REQUESTING PHYSICIAN: Dr. Jaime Molina. CONSULTING PHYSICIAN: Dr. Parker Dobbs. REASON FOR CONSULTATION: Left hip intertrochanteric fracture secondary to multiple myeloma. BRIEF CLINICAL HISTORY: Vinicius is an 83-year-old white male, who was brought to [facility] via EMS after he fell out of bed, resulting in a left hip fracture. He was admitted by the trauma team, noted to have a left inter/subtrochanteric fracture, and our service was consulted for definitive orthopedic management of this problem. Plain radiographs also revealed punched-out lesions in the proximal femur. The patient also has a history of multiple myeloma. He has been treated by Dr. Gallo here locally for this. PAST MEDICAL HISTORY: 1. Coronary artery vascular disease. 2. Peripheral vascular disease. 3. Multiple myeloma. 4. Myocardial infarction. 5. Gastroesophageal reflux disease. 6. Benign prostatic hypertrophy. PAST SURGICAL HISTORY: 1. Right rotator cuff repair. 2. Cataract. 3. Coronary artery bypass graft x5. 4. AICD placement. PHYSICAL EXAMINATION: This is an elderly, frail-appearing, cachectic male, in no apparent distress. He is alert, oriented, appropriate, and responsive to examiner and conversive. He does not appear to be any significant pain currently. He has a zoster rash on the right upper torso. His AICD implant is visible through the skin outlined on the left upper chest. His range of motion of the hips not assessed, but he keeps it in a flexed position, slightly shortened, but no significant external rotation appreciated. He is neurovascularly intact in both lower extremities. IMAGING STUDIES: Two-view of left hip demonstrates a varus angulated left hip intertrochanteric fracture, 2- to 3-part in nature, with a little bit of subtroch extension. He also has multiple punched-out lesions noted in the proximal metaphysis of the femur. IMPRESSION: 1. Left hip 3-part intertrochanteric hip fracture. 2. Multiple myeloma. 3. Coronary atherosclerosis with peripheral vascular disease. PLAN: 1. The patient be admitted by the trauma team. 2. He is posted for 1 o'clock on 11/28/2018 for a closed versus open reduction of left hip. The risks, benefits, options, alternatives, and rationale for proceeding with left hip long trochanteric nail fixation has been explained in great detail with the patient. He is ready to proceed. All questions were answered. No guarantee of outcome stated or implied. 3. Please see orders. Job ID: [id number]
[2018-11-28] MEDS ORDERED: ePHEDrine 50 MG/ML VIAL ONE (13:18)
[2018-11-28] MEDS ORDERED: PROPOFOL 200 MG/20 ML VIAL ONE (13:18)
[2018-11-28] MEDS ORDERED: Ondansetron PF 4 MG/2 ML Vial ONE (13:18)
[2018-11-28] MEDS ORDERED: Lidocaine 1% PF 5 ML VIAL ONE (13:18)
[2018-11-28] MEDS ORDERED: PHENYLEPHRINE-NS 100 MCG/ML 10 ML SYRINGE ONE (13:18)
[2018-11-28] MEDS ORDERED: Ropivacaine 0.5% HCl/PF (150 MG/30 ML VIAL) ONE (13:49)
[2018-11-28] MEDS ORDERED: Fentanyl 100 MCG/2 ML VIAL ONE ×2 (13:50→13:57)
[2018-11-28] MEDS ORDERED: Dexamethasone 4 mg/ml Vial ONE (13:51)
[2018-11-28] MEDS ORDERED: Phenylephrine HCL 10 MG/ML VIAL ONE (13:57)
[2018-11-28] MEDS ORDERED: Norepinephrine 4 MG/4 ML VIAL ONE (13:57)
[2018-11-28] MEDS ORDERED: Ketamine 50 MG/ML (10ML VIAL) ONE (14:33)
--- NOTE | 2018-11-28 16:11 | EKG ---
Test Reason : ROUTINE Blood Pressure : / mmHG Vent. Rate : 084 BPM Atrial Rate : 079 BPM P-R Int : 000 ms QRS Dur : 188 ms QT Int : 474 ms P-R-T Axes : 000 270 059 degrees QTc Int : 560 ms Ventricular-paced rhythm with occasional Premature ventricular complexes Abnormal ECG Confirmed by ELIZABETH MOROCHO ([id number]) on 11/28/2018 4:10:49 PM Referred By: MIRZA GRIFFIN Confirmed By:ELIZABETH MOROCHO
[2018-11-28] MEDS ORDERED: Calamine/Zinc Oxide 177 ML LOTION TP PRN (16:13)
[2018-11-28] MEDS ORDERED: Promethazine HCl 25 MG/ML VIAL SLOW IVP PRN (16:24)
[2018-11-28] MEDS ORDERED: Ondansetron HCl/PF 4 MG/2 ML Vial IVP PRN (16:24)
[2018-11-28] MEDS ORDERED: Promethazine HCl 25 MG/ML VIAL IM PRN (16:24)
[2018-11-28] MEDS ORDERED: Norepinephrine 8 MG/250 ML BAG IVPB PRN (17:08)
--- NOTE | 2018-11-28 17:27 | RAD ---
LEFT HIP: INDICATIONS: Open reduction and internal fixation procedure. TECHNIQUE: Four fluoroscopic views were presented from the OR. FINDINGS: These films demonstrate an intramedullary bud and pin transfixing the hip and femur. POS: MANOJ
[2018-11-28] MEDS ORDERED: Hydrocortisone Sod Succ/PF 100 mg/2 ml Vial ONE (18:09)
[2018-11-28] MEDS ORDERED: Calcium Chloride 1 GM/10 ML Abboject SYRINGE ONE (18:10)
[2018-11-28] MEDS ORDERED: Calcium Chloride 1 GM/10 ML Abboject SYRINGE IVP SCH (18:15)
[2018-11-28] MEDS ORDERED: Hydrocortisone Sod Succ/PF 100 mg/2 ml Vial IVP SCH (18:15)
[2018-11-28 18:27] LABS: Hemoglobin 7.7 g/dL (14.0-18.0)
[2018-11-28 18:28] LABS: Analyzer IN Cardio OR; Base Excess (BEa) -3.1 mEq/L (-2.0 to +3.0); CO2 Tension 33.3 mmHg (35.0-45.0); Calcium, Ionized 1.05 mmol/L (1.12-1.30); Carboxyhemoglobin (COHb) 1.4 gm% (0.0-3.0); O2 Tension (PaO2) 77.9 mmHg (> 60.0); Potassium - ABG Lab 4.23 mmol/L (3.70-5.30); pH, Arterial 7.42 (7.35-7.45)
[2018-11-28 18:29] LABS: #Lymphocytes 0.7 thou/uL (1.20-3.40); #Monocytes 0.3 thou/uL (0.11-0.59); #Neutrophils 5.4 thou/uL (1.40-6.50); %Eosinophils 0.2 % (0.0-10.0); %Lymphocytes 10.3 % (21.0-51.0); %Monocytes 4.3 % (0.0-10.0); %Neutrophils 85.2 % (42.0-75.0); Hemoglobin 7.6 g/dL (14.0-18.0); Mean Corpuscular HGB CONC 32.9 g/dL (32.0-36.0); Mean Corpuscular Hemoglobin 34.2 pg (27.0-31.0); Mean Platelet Volume 8.1 fL (7.4-10.4); Platelet Count 108 thou/uL (130-400); RBC Distribution Width 14.7 % (11.5-14.5); Red Blood Cell (RBC) Count 2.23 mill/uL (4.70-6.10); White Blood Cell (WBC) Count 6.4 thou/uL (4.8-10.8)
--- NOTE | 2018-11-28 18:33 | CON ---
DATE OF CONSULTATION: 11/29/2018 REASON FOR CONSULTATION: Preop clearance. HISTORY OF PRESENT ILLNESS: Mr. Jacobo is very pleasant 83-year-old gentleman with past medical history of CAD status bypass surgery 22 years ago in addition to ischemic cardiomyopathy. He recently fell after slipping off his mattress and broke his hip. He is now need a preop clearance. The patient denies any recent chest pain or pressure. He states after adjusting his medications 4 months ago, his symptoms have greatly improved. His ambulation is limited. PAST MEDICAL HISTORY: As above including rotator cuff repair, myeloma, previous MA. SOCIAL HISTORY: No current tobacco or alcohol use. ALLERGIES: OPIOIDS. FAMILY HISTORY: Negative for CAD. REVIEW OF SYMPTOMS: Ten-point review of systems is reviewed and as above, otherwise negative. PHYSICAL EXAMINATION: GENERAL: Patient is a pleasant male, who is in no acute distress. The patient appears their stated age. VITAL SIGNS: Blood pressure 109/75, pulse 75, temperature 97.9. NEUROLOGIC: The patient is alert and oriented x3 with no focal neurologic deficits. HEENT: Sclerae without icterus. Mouth has moist mucous membranes with normal pallor. NECK: No JVD. Carotid upstroke brisk. No bruits bilaterally. LUNGS: Clear to auscultation with unlabored respirations. BACK: No scoliosis or kyphosis. CARDIAC: Regular rate and rhythm with normal S1 and S2. No S3 or S4 noted. No significant rubs, murmurs, thrills, or gallops noted throughout the precordium. PMI is not displaced. There is no parasternal heave. ABDOMEN: Soft, nontender, nondistended. No peritoneal signs present. No hepatosplenomegaly. No abnormal striae. EXTREMITIES: 2+ femoral and 2+ dorsalis pedis pulses. No cyanosis, clubbing, or edema. SKIN: No gross abnormalities. PERTINENT LABORATORY DATA: Hemoglobin 8.9, creatinine 1.1. Echo Doppler shows LVEF 25% to 30%. Inferior wall appears akinetic. LV appears dilated. Moderate MR with moderate to severe AI present. No noted. IMPRESSION: 1. Preop clearance. 2. Coronary artery disease. 3. Status post bypass surgery. 4. Ischemic cardiomyopathy. RECOMMENDATIONS: From a CV standpoint, Mr. Jacobo is certainly an increased risk of complications given his previous history. He has had no previous ischemic workup. He was supposed to follow up in the office and did not after August's hospital visit. Given he has no current symptoms of angina and he appears euvolemic. We will still consider Mr. Jacobo had increased CV complications, but not felt to be prohibitive. Given high risk for complications with hip repair, would recommend proceeding with a hip surgery, keep a close eye on his blood pressure and heart rate during the procedure. We will continue to follow with you. Job ID: [id number] [facility] HOSPITALYahaira
[2018-11-28 18:36] LABS: ALV-art Gradient 30.205 (0-20); Puncture Site ALINE
[2018-11-28] MEDS ORDERED: Sodium Chloride 0.9% 10 ML ONE (18:39)
[2018-11-28 18:47] LABS: Anion Gap 14 mmol/L (10-20); BUN (Urea Nitrogen) 35 mg/dL (8.4-25.7); Calc. Creatinine Clearance 45 mL/min (70-130); Calcium 7.7 mg/dL (7.8-10.44); Carbon Dioxide 19 mmol/L (23-31); Chloride 103 mmol/L (98-107); Estimated GFR-MDRD 74; Glucose 119 mg/dL (83-110); Magnesium 1.8 mg/dL (1.6-2.6); Phosphorus 3.8 mg/dL (2.3-4.7); Potassium 4.3 mmol/L (3.5-5.1); Sodium 132 mmol/L (136-145)
--- NOTE | 2018-11-28 20:52 | PRG ---
DATE OF SERVICE: 11/28/2018 SUBJECTIVE: The patient is on the surgical floor. He is hospital day #2, status post falling out of bed. The patient has unknown diagnosis of multiple myeloma and has undergone chemo treatments for it. It had likely traumatic versus pathologic fracture of his left proximal femur, and he is awaiting surgical intervention by Dr. Dobbs today. The patient is also going to be seen by Dr. Lilly to medically clear him due to his significant coronary artery disease history. Otherwise, overnight, the patient had no issues. Pain was controlled. He has been n.p.o. since midnight. OBJECTIVE: VITAL SIGNS: Temperature is 97.7, heart rate 77, blood pressure 100/64, respirations 20, oxygen saturation 97% on room air. GENERAL: The patient is resting comfortably in bed. He is awake, conversant, and appropriate. He has no complaints. HEENT: Unchanged. The patient has crusting lesions from recent herpes zoster outbreak. LUNGS: Clear to auscultation with moderate inspiratory and expiratory effort. HEART: Regular rate and rhythm. ABDOMEN: Soft, flat, nontender with active bowel sounds. EXTREMITIES: Neurovascularly intact x4. LABORATORY FINDINGS: White blood cell count 6.0, hemoglobin 8.9, hematocrit 27.3, platelets 128. Sodium 132, potassium 4.3, chloride 103, CO2 of 19, BUN 35, creatinine 0.97, glucose 119, phosphorus 3.8, magnesium 1.8. No radiographs reviewed this morning. ASSESSMENT AND PLAN: 1. Status post fall from bed. 2. Left proximal femur fracture. 3. History of multiple myeloma. 4. History of significant coronary artery disease to include coronary artery bypass graft x5 vessels and pacemaker placement. PLAN: Plan will be to await medical clearance by Cardiology. Postoperatively, we will do physical and occupational therapy. Continue his pain control, pulmonary toilet, gastritis and mechanical VTE prophylaxis. We will institute chemical prophylaxis once the patient's hemoglobin and hematocrit declared stable. Job ID: [id number]
[2018-11-28] MEDS ORDERED: BACITRACIN TP SCH (21:00)
[2018-11-28] MEDS ORDERED: POLYMYXIN B SULFATE TP SCH (21:00)
[2018-11-28] MEDS ORDERED: Famotidine 20 MG TAB PO SCH (21:00)
[2018-11-28] MEDS: Docusate Calcium (SURFAK) 240 MG CAP PO SCH (21:29)
[2018-11-28] MEDS: Polyethylene Glycol 3350 17 GM Packet PO SCH (21:31)
--- NOTE | 2018-11-28 23:13 | OP ---
DATE OF PROCEDURE: 11/28/2018 PREOPERATIVE DIAGNOSIS: Left intertrochanteric femur fracture, pathologic fracture with history of multiple myeloma. POSTOPERATIVE DIAGNOSIS: Left intertrochanteric femur fracture, pathologic fracture with history of multiple myeloma. PROCEDURE PERFORMED: TFN, left intertrochanteric. ANESTHESIA: General. HOTEL YARDPERSON: Sean Fulton PA-C ESTIMATED BLOOD LOSS: 100 mL. IMPLANT: Synthes TFN 11 x 420 mm nail with 95 mm hip screw. COMPLICATIONS: None. DRAINS: None. SPECIMEN: Reaming sent to Pathology for correlation with diagnosis of multiple myeloma. OUTCOME: Near anatomic alignment of fracture. INDICATIONS FOR PROCEDURE: The patient is an 83-year-old gentleman, who had a recent heart attack and has been recovering at [facility]. At [facility], he sustained a ground level fall, fracturing his left intertrochanteric femur. X-rays were obtained and confirmed the diagnosis of multiple myeloma radiologically and he does have an intertrochanteric femur fracture. After discussion with the patient including risks and benefits, we decided to proceed with TFN stabilization. I had a very thorough discussion with the patient regarding the risks of the surgery, especially given his recent myocardial infarction. DESCRIPTION OF PROCEDURE: The patient was brought to the operating room and a time-out performed followed by induction of general anesthesia. The patient was then positioned supine on the fracture table with the injured extremity held in longitudinal traction and slight internal rotation. The well leg was held in extension at the hip and scissored to allow for AP and lateral C-arm imaging of the left thigh. Next, a sterile prep and drape were performed in the left lateral thigh. A small skin incision was then made proximal to greater trochanter. After skin was sharply incised, dissection was carried down bluntly such that the tip of the greater trochanter could be palpated. Next, a threaded guidewire was passed from the tip of the greater trochanter down into the proximal femoral canal. A reamer was then passed over this guidewire, opening up the canal for reaming. Next, a ball-tipped guidewire was passed down the canal. Reaming started at size 11 and continued up to 12.5, which did give some intramedullary chatter. The reamings were sent to Pathology for gross inspection. Next, an 11 x 420 mm nail was passed over this guidewire down into the distal femoral metaphysis. Once appropriately positioned, a second incision was made distal to the first and then the threaded guidewire with jig was applied against the lateral cortex of the femur and then the pin driven up through the lateral cortex femur through the nail and up into the femoral head approaching a [id number] position. Once appropriately positioned, measurement was taken off this pin and then the step reamer passed over this guidewire to further prepare the femoral neck and head for screw acceptance. A 95-mm hip screw was then inserted under C-arm guidance. Once fully inserted, the compression mechanism was applied to get some compression across the fracture site. Next, a locking mechanism was engaged and backed off half turn to allow for further sliding of the hip screw if needed. Next, the proximal jig was removed and then distally freehand technique was used under C-arm guidance for 2 distal cross-lock screws inserted from lateral to medial, again using freehand technique. With completion of this final AP and lateral C-arm images of the knee and hip fracture were obtained and saved. The 4 small incisions were then irrigated with bulb syringe. The distal wounds were closed with ru. The most proximal wound was closed with 2-0 Vicryl and ru and the hip screw incision was also closed with ru. Xeroform gauze, tape dressing was applied to each of the 4 incisions and then the patient was transferred to recovery room in stable condition. Job ID: [id number]
[2018-11-29 00:25] LABS: Hemoglobin 8.4 g/dL (14.0-18.0)
[2018-11-29] MEDS ORDERED: Sodium Chloride 0.9% 250 ML IV SCH (02:15)
[2018-11-29] MEDS: Ketorolac Tromethamine 30 MG/ML VIAL IVP SCH ×4 (02:54→20:06)
[2018-11-29] MEDS: Hydrocortisone Sod Succ/PF 100 mg/2 ml Vial IVP SCH ×3 (02:54→17:57)
[2018-11-29] MEDS: Sodium Chloride 0.9% 1,000 ML IV SCH (02:55)
[2018-11-29 05:09] LABS: #Lymphocytes 0.4 thou/uL (1.20-3.40); #Monocytes 0.3 thou/uL (0.11-0.59); #Neutrophils 5.4 thou/uL (1.40-6.50); %Basophils 0.2 % (0.0-1.0); %Eosinophils 0.1 % (0.0-10.0); %Lymphocytes 6.4 % (21.0-51.0); %Monocytes 5.5 % (0.0-10.0); %Neutrophils 87.8 % (42.0-75.0); Hemoglobin 8.4 g/dL (14.0-18.0); Mean Corpuscular HGB CONC 32.6 g/dL (32.0-36.0); Mean Corpuscular Hemoglobin 32.9 pg (27.0-31.0); Mean Platelet Volume 8.1 fL (7.4-10.4); Platelet Count 94 thou/uL (130-400); RBC Distribution Width 15.5 % (11.5-14.5); Red Blood Cell (RBC) Count 2.54 mill/uL (4.70-6.10); White Blood Cell (WBC) Count 6.2 thou/uL (4.8-10.8)
[2018-11-29 05:31] LABS: Anion Gap 12 mmol/L (10-20); BUN (Urea Nitrogen) 32 mg/dL (8.4-25.7); Calc. Creatinine Clearance 39 mL/min (70-130); Calcium 8.1 mg/dL (7.8-10.44); Carbon Dioxide 20 mmol/L (23-31); Chloride 106 mmol/L (98-107); Estimated GFR-MDRD 85; Glucose 106 mg/dL (83-110); Magnesium 1.8 mg/dL (1.6-2.6); Phosphorus 3.7 mg/dL (2.3-4.7); Potassium 4.5 mmol/L (3.5-5.1); Sodium 133 mmol/L (136-145)
[2018-11-29 05:34] LABS: Troponin I Less than 0.010 ng/mL (< 0.028)
[2018-11-29] MEDS: valACYclovir 500 MG TAB PO SCH ×3 (06:22→21:35)
[2018-11-29] MEDS ORDERED: Aspirin Chewable 81 MG TAB PO SCH (09:00)
[2018-11-29] MEDS: Polyethylene Glycol 3350 17 GM Packet PO SCH ×2 (10:13→20:05)
[2018-11-29] MEDS: Aspirin Chewable 81 MG TAB PO SCH ×2 (10:14→20:05)
[2018-11-29] MEDS: Docusate Calcium (SURFAK) 240 MG CAP PO SCH ×2 (10:14→20:05)
[2018-11-29] MEDS: Amiodarone 200 MG TAB PO SCH (10:14)
[2018-11-29] MEDS: Tamsulosin HCl 0.4 MG CAP PO SCH (10:15)
[2018-11-29] MEDS: Metoprolol Tartrate 25 MG TAB PO SCH (10:16)
[2018-11-29] MEDS: Midodrine HCl 5 MG TAB PO SCH ×3 (10:16→20:07)
[2018-11-29] MEDS: Citrucel 500 MG TAB PO SCH (10:32)
--- NOTE | 2018-11-29 12:29 | PRG ---
DATE OF SERVICE: 11/29/2018 SUBJECTIVE: Mr. Jacobo is an 83-year-old man with history of multiple myeloma, who is postoperative day #1, status post TFN left intertrochanteric femur fracture. The patient is awake and alert today. He reports adequate pain control. He is tolerating clear liquid diet. Urinary output has been adequate. He has been on no vasopressor support since admission to the ICU. OBJECTIVE: VITAL SIGNS: This morning include blood pressure 94/49, pulse is 74, respiratory rate is 15, temperature is 97.9 degrees Fahrenheit, and oxygen saturation is 96% on room air. HEENT: Reveals pupils are equal, round, reactive to light and accommodation. HEART: Reveals regular rate and rhythm. No murmurs or gallops auscultated. LUNGS: Clear to auscultation bilaterally. Breathing, regular and nonlabored. ABDOMEN: Soft, nontender, and nondistended. EXTREMITIES: Reveal 2+ radial and pedal pulses bilaterally. No ankle edema is present. NEUROLOGIC: Reveals no focal deficits present. LABORATORY FINDINGS: Today include a CBC with 6200 white blood cells, hemoglobin and hematocrit of 8.4 and 25.7 respectively. Platelet count is noted at 94,000. Metabolic profile; sodium 133, potassium 4.5, chloride is 106, bicarb is 20, BUN is 32, creatinine 0.86, glucose is 106, magnesium 1.8, and phosphorus 3.7. IMPRESSION: 1. Postop day #1, status post TFN left intertrochanteric femur fracture. 2. Resolved acute distributive shock secondary to acute adrenal insufficiency. 3. Stable acute blood loss anemia. PLAN: 1. Increase activity per Physical and Occupational Therapy. 2. We will advance diet. The patient is certainly hemodynamically stable for transfer to general surgical floor. Job ID: [id number]
[2018-11-29] MEDS: Acetaminophen 500 MG TAB PO SCH ×2 (13:53→17:57)
--- NOTE | 2018-11-29 15:12 | PDOC.CTH ---
Cardiology Progress Note - Subjective No complaints. Working with PT and feels fine. - Objective Vital Signs Temp Pulse Pulse BP BP Pulse Ox Pulse Ox 11/29/18 11:58 98.0 F 11/29/18 08:59 73 84 111/64 119/74 97 11/29/18 08:58 73 95 111/64 119/74 97 11/29/18 08:00 97.9 F 11/29/18 04:00 94 L Pulse Ox 11/29/18 11:58 11/29/18 08:59 98 11/29/18 08:58 95 11/29/18 08:00 11/29/18 04:00 Weight 94 lb 2.198 oz 11/28/18 11/29/18 11/30/18 06:59 06:59 06:59 Intake Total 1650 1382 1363 Output Total 650 160 Balance 6539 335 4250 - Physical Examination General/Neuro: alert & oriented x3 Neck: other: (+JVD) Lungs: CTA Heart: RRR Abdomen: NT/ND Extremities: other: (no edema) - Telemetry Telemetry Rhythm: no tele - Labs Result Diagrams: 11/29/18 04:45 11/29/18 04:45 Troponin/CKMB CK-MB (CK-2) 1.5 ng/mL (0-6.6) 11/28/18 04:04 Troponin I Less than 0.010 ng/mL (< 0.028) 11/29/18 04:45 - Assessment/Plan 1. s/p fall and left hip fx/repair 2. ICMO (EF 25%) 3. Chronic systolic CHF 4. Arrhythmia (? AF on Amio) Patient tolerating po intake. +I/O. On IVFs and with JVD sitting upright. Stop IVFs. Lasix 40mg IV x 1 now. Reassess tomorrow.
[2018-11-29] MEDS ORDERED: Furosemide 40 MG/4 ML VIAL SLOW IVP SCH (15:30)
[2018-11-29] MEDS: CEFAZOLIN 2 GM in Premix Bag 1 BAG IVPB SCH (17:57)
[2018-11-30] MEDS: Acetaminophen 500 MG TAB PO SCH ×5 (01:32→23:00)
[2018-11-30] MEDS: CEFAZOLIN 2 GM in Premix Bag 1 BAG IVPB SCH (02:06)
[2018-11-30] MEDS: Hydrocortisone Sod Succ/PF 100 mg/2 ml Vial IVP SCH ×3 (02:09→17:45)
[2018-11-30] MEDS: Ketorolac Tromethamine 30 MG/ML VIAL IVP SCH ×2 (02:09→08:07)
[2018-11-30] MEDS: valACYclovir 500 MG TAB PO SCH ×3 (05:15→22:58)
[2018-11-30 05:21] LABS: #Lymphocytes 0.6 thou/uL (1.20-3.40); #Monocytes 0.4 thou/uL (0.11-0.59); #Neutrophils 4.2 thou/uL (1.40-6.50); %Eosinophils 0.2 % (0.0-10.0); %Lymphocytes 11.5 % (21.0-51.0); %Monocytes 6.8 % (0.0-10.0); %Neutrophils 81.5 % (42.0-75.0); Hemoglobin 7.5 g/dL (14.0-18.0); Mean Corpuscular HGB CONC 32.1 g/dL (32.0-36.0); Mean Corpuscular Hemoglobin 32.7 pg (27.0-31.0); Mean Platelet Volume 8.5 fL (7.4-10.4); Platelet Count 86 thou/uL (130-400); RBC Distribution Width 15.4 % (11.5-14.5); Red Blood Cell (RBC) Count 2.28 mill/uL (4.70-6.10); White Blood Cell (WBC) Count 5.2 thou/uL (4.8-10.8)
[2018-11-30 05:44] LABS: Anion Gap 13 mmol/L (10-20); BUN (Urea Nitrogen) 30 mg/dL (8.4-25.7); Calc. Creatinine Clearance 52 mL/min (70-130); Calcium 7.9 mg/dL (7.8-10.44); Carbon Dioxide 20 mmol/L (23-31); Chloride 107 mmol/L (98-107); Estimated GFR-MDRD 78; Glucose 89 mg/dL (83-110); Magnesium 1.8 mg/dL (1.6-2.6); Phosphorus 2.3 mg/dL (2.3-4.7); Potassium 3.6 mmol/L (3.5-5.1); Sodium 136 mmol/L (136-145)
[2018-11-30] MEDS ORDERED: Potassium Phosphate 15 MMOL in Sodium Chloride 0.9% 250 ML 250 ML IVPB SCH (07:15)
--- NOTE | 2018-11-30 08:03 | PDOC.CTH ---
Cardiology Progress Note - Subjective Feels good. No complaints. No SOB, CP noted. Rehab going well per pt - Objective Vital Signs Temp Pulse Resp BP Pulse Ox 11/30/18 07:37 98.8 F 72 18 105/60 94 L 11/30/18 03:05 98.3 F 82 18 100/52 L 96 11/29/18 23:03 97.9 F 82 18 107/54 L 97 11/29/18 20:10 98 Weight 136 lb 10.986 oz 11/29/18 11/30/18 12/01/18 06:59 06:59 06:59 Intake Total 1382 2263 Output Total 650 1360 Balance 732 903 - Physical Examination General/Neuro: alert & oriented x3, NAD Neck: carotid US brisk, no JVD present Lungs: unlabored respirations Heart: RRR Abdomen: NT/ND, soft Extremities: + femoral B - Labs Result Diagrams: 11/30/18 04:08 11/30/18 04:08 Troponin/CKMB CK-MB (CK-2) 1.5 ng/mL (0-6.6) 11/28/18 04:04 Troponin I Less than 0.010 ng/mL (< 0.028) 11/29/18 04:45 - Assessment/Plan 1. s/p fall and left hip fx/repair 2. ICMO (EF 25%) 3. Chronic systolic CHF 4. Arrhythmia (? AF on Amio) Transfusion per primary team. CV status stable Lasix PO No BB, ACEI, ARB secondary to BP 100 systolic On amiodarone
[2018-11-30] MEDS: Midodrine HCl 5 MG TAB PO SCH ×3 (08:05→20:02)
[2018-11-30] MEDS: Metoprolol Tartrate 25 MG TAB PO SCH (08:06)
[2018-11-30] MEDS: Aspirin Chewable 81 MG TAB PO SCH ×2 (08:07→20:03)
[2018-11-30] MEDS: Docusate Calcium (SURFAK) 240 MG CAP PO SCH ×2 (08:07→20:03)
[2018-11-30] MEDS: Amiodarone 200 MG TAB PO SCH (08:07)
[2018-11-30] MEDS: Tamsulosin HCl 0.4 MG CAP PO SCH (08:07)
[2018-11-30] MEDS: Polyethylene Glycol 3350 17 GM Packet PO SCH ×2 (08:08→20:03)
[2018-11-30] MEDS: Citrucel 500 MG TAB PO SCH (08:09)
--- NOTE | 2018-11-30 08:42 | RAD ---
AP CHEST: Date: 11/30/18 HISTORY: CHF. Shortness of breath. COMPARISON: 11/27/18. FINDINGS/IMPRESSION: Cardiomegaly. Vascular markings upper normal without overt congestive change. There is evidence of sm all bilateral effusions. Pacemaker leads again noted. No focal infiltrate. POS: H
[2018-11-30] MEDS ORDERED: Ibuprofen 600 MG TAB PO SCH ×2 (10:00→10:30)
[2018-11-30] MEDS ORDERED: Ibuprofen 600 MG TAB PO PRN (10:19)
--- NOTE | 2018-11-30 11:58 | EKG ---
Test Reason : Blood Pressure : / mmHG Vent. Rate : 069 BPM Atrial Rate : 069 BPM P-R Int : 000 ms QRS Dur : 196 ms QT Int : 498 ms P-R-T Axes : 091 036 088 degrees QTc Int : 533 ms Atrial-sensed ventricular-paced rhythm Abnormal ECG Confirmed by LANDY MEAD D.O. ([id number]), magazine editor KYLE ISBELL ([id number]) on 11/30/2018 11:58:38 AM Referred By: B[place]ON Confirmed By:LANDY MEAD D.O.
[2018-11-30] MEDS: Melatonin 3 MG TAB PO SCH (20:03)
[2018-12-01] MEDS: Hydrocortisone Sod Succ/PF 100 mg/2 ml Vial IVP SCH ×3 (01:46→17:18)
[2018-12-01] MEDS: valACYclovir 500 MG TAB PO SCH ×3 (05:22→22:08)
[2018-12-01] MEDS: Acetaminophen 500 MG TAB PO SCH ×4 (05:23→23:48)
[2018-12-01 05:38] VITALS: BMI 21.9
[2018-12-01 05:42] LABS: Anion Gap 11 mmol/L (10-20); BUN (Urea Nitrogen) 35 mg/dL (8.4-25.7); Calc. Creatinine Clearance 56 mL/min (70-130); Calcium 8.2 mg/dL (7.8-10.44); Carbon Dioxide 22 mmol/L (23-31); Chloride 106 mmol/L (98-107); Estimated GFR-MDRD 86; Glucose 110 mg/dL (83-110); Phosphorus 1.8 mg/dL (2.3-4.7); Potassium 4.2 mmol/L (3.5-5.1); Sodium 135 mmol/L (136-145)
[2018-12-01] MEDS ORDERED: PHOS-NAK 1 PKT PACK PO SCH ×3 (06:00→14:00)
[2018-12-01] MEDS: Amiodarone 200 MG TAB PO SCH (08:56)
[2018-12-01] MEDS: Dutasteride 0.5 MG CAP PO SCH (08:56)
[2018-12-01] MEDS: Docusate Calcium (SURFAK) 240 MG CAP PO SCH ×2 (08:56→21:40)
[2018-12-01] MEDS: Metoprolol Tartrate 25 MG TAB PO SCH (08:56)
[2018-12-01] MEDS: Tamsulosin HCl 0.4 MG CAP PO SCH (08:56)
[2018-12-01] MEDS: Citrucel 500 MG TAB PO SCH (08:57)
[2018-12-01] MEDS: Furosemide 20 MG TAB PO SCH (08:57)
[2018-12-01] MEDS: Midodrine HCl 5 MG TAB PO SCH ×3 (08:57→21:40)
[2018-12-01] MEDS: Aspirin Chewable 81 MG TAB PO SCH ×2 (08:57→21:41)
--- NOTE | 2018-12-01 08:57 | PDOC.CTH ---
Cardiology Progress Note - Subjective Pt doing well. No complaints except hip pain/. - Objective Vital Signs Temp Pulse Resp BP Pulse Ox 12/01/18 07:33 97.6 F 81 14 111/62 92 L 12/01/18 03:00 97.8 F 80 16 118/68 98 12/01/18 00:33 98.8 F 63 16 103/63 95 Weight 136 lb 0.403 oz 11/30/18 12/01/18 12/02/18 06:59 06:59 06:59 Intake Total 2263 1830 Output Total 1360 550 Balance 903 1280 - Physical Examination General/Neuro: alert & oriented x3, NAD Neck: no JVD present Lungs: unlabored respirations Heart: PMI normal, RRR Abdomen: no HSM, NT/ND, soft Extremities: + femoral B - Labs Result Diagrams: 12/01/18 09:18 12/01/18 04:56 Troponin/CKMB CK-MB (CK-2) 1.5 ng/mL (0-6.6) 11/28/18 04:04 Troponin I Less than 0.010 ng/mL (< 0.028) 11/29/18 04:45 - Assessment/Plan 1. s/p fall and left hip fx/repair 2. ICMO (EF 25%) 3. Chronic systolic CHF 4. Arrhythmia (? AF on Amio) 12/01/2018 11/30/2018 REC Transfusion per primary team. CV status stable Lasix PO No BB, ACEI, ARB secondary to BP 100 systolic On amiodarone fu in office in 2-3 weeks
[2018-12-01] MEDS: Polyethylene Glycol 3350 17 GM Packet PO SCH ×2 (08:59→21:42)
[2018-12-01] MEDS: traMADol HCl 50 MG TAB PO PRN ×2 (09:07→23:48)
[2018-12-01 09:38] LABS: Hemoglobin 7.6 g/dL (14.0-18.0); Mean Corpuscular Volume 96.6 fL (78.0-98.0); Mean Platelet Volume 7.9 fL (7.4-10.4); Platelet Count 122 thou/uL (130-400); RBC Distribution Width 16.3 % (11.5-14.5); Red Blood Cell (RBC) Count 2.61 mill/uL (4.70-6.10); White Blood Cell (WBC) Count 6.9 thou/uL (4.8-10.8)
--- NOTE | 2018-12-01 09:44 | PRG ---
DATE OF SERVICE: 12/01/2018 SUBJECTIVE: Vinicius is postop day 4 from a left hip long trochanteric nail fixation. He is doing relatively well. For now, he is ambulated approximately 15 feet, twice Ralph, and pain is tolerable. OBJECTIVE: VITAL SIGNS: Temperature 97.6, pulse 81, respiratory rate 14 and nonlabored, O2 saturation 92% on room air, and blood pressure 111/62. GENERAL: He is alert and oriented to person, place, time, and situation. Nonfocal, appropriate, responsive with examiner. EXTREMITIES: Visual inspection of the left lower extremity demonstrates him to have no external rotation or shortening. No malformation or deformity, and he is neurovascularly intact in the left lower extremity and his incisions are clean. LABORATORY DATA: Hemoglobin and hematocrit, 7.5 and 23.2, down a little bit, but today's lab is pending. IMPRESSION: 1. An 83-year-old male postop day 4, left hip long trochanteric nail fixation. 2. Multiple myeloma. 3. Anemia. PLAN: Continue efforts at rehabilitation. Considered skilled placement versus inpatient rehab. Job ID: [id number]
[2018-12-01 10:06] LABS: #Monocytes 0.3 thou/uL (0.11-0.59); #Neutrophils 5.5 thou/uL (1.40-6.50); %Basophils 0.3 % (0.0-1.0); %Eosinophils 0.1 % (0.0-10.0); %Lymphocytes 15.2 % (21.0-51.0); %Monocytes 4.7 % (0.0-10.0); %Neutrophils 79.7 % (42.0-75.0); Hypochromia SLIGHT = 6-15 cells (100X) (0-5/hpf); MDiff Complete? YES; Microcytosis SLIGHT = 6-15 cells (100X) (0-5/hpf); Platelet Morphology Comment Appears Decreased; Polychromasia SLIGHT = 2-3 cells (100X) (0-2/hpf)
--- NOTE | 2018-12-01 10:12 | PRG ---
DATE OF SERVICE: 12/01/2018 SUBJECTIVE: The patient is 83 years old with history of multiple myeloma, CHF, admitted after a fall at home. He was diagnosed with left hip fracture. He underwent left hip replacement. Postoperatively, he is doing better. No overnight events. He was able to void by himself last night with relative difficulty. No fever. No shortness of breath. He slept well. His phosphorus value was 1.8 this morning and was replaced with phosphorus p.o. b.i.d. We will check the electrolyte tomorrow. Kidney function was stable. Vitals was stable. OBJECTIVE: GENERAL: The patient is lying down in bed. No signs of acute distress. SKIN: [place] and warm. VITAL SIGNS: Temperature 97, heart rate 81, respiratory rate 14, O2 saturation is 98% on room air, and blood pressure 110/62. The patient reports pain is controlled. LUNGS: Clear bilaterally. HEART: Regular rate and rhythm. ABDOMEN: Soft and nondistended. EXTREMITIES: Able to move 4 extremities. Neurovascularly intact. DIAGNOSES: 1. Left hip fracture status post fall. Total left hip replacement, postoperative day 3. 2. History of multiple myeloma. 3. History of congestive heart failure. 4. Right shoulder shingles resolved PLAN: Continue with pain control. Continue with CHF treatment. Prepare for placement tomorrow. Continue to work with PT/OT Job ID: [id number] [facility]
[2018-12-01] MEDS: Melatonin 3 MG TAB PO SCH (21:41)
[2018-12-02] MEDS: Hydrocortisone Sod Succ/PF 100 mg/2 ml Vial IVP SCH ×3 (02:01→17:14)
[2018-12-02 04:57] LABS: Anion Gap 12 mmol/L (10-20); BUN (Urea Nitrogen) 36 mg/dL (8.4-25.7); Calc. Creatinine Clearance 51 mL/min (70-130); Calcium 8.5 mg/dL (7.8-10.44); Carbon Dioxide 24 mmol/L (23-31); Chloride 104 mmol/L (98-107); Estimated GFR-MDRD 76; Glucose 116 mg/dL (83-110); Magnesium 1.9 mg/dL (1.6-2.6); Phosphorus 2.1 mg/dL (2.3-4.7); Potassium 4.3 mmol/L (3.5-5.1); Sodium 136 mmol/L (136-145)
[2018-12-02] MEDS: valACYclovir 500 MG TAB PO SCH ×3 (05:54→20:20)
[2018-12-02] MEDS: Acetaminophen 500 MG TAB PO SCH ×3 (05:55→17:14)
[2018-12-02] MEDS: Dutasteride 0.5 MG CAP PO SCH (08:27)
[2018-12-02] MEDS: Amiodarone 200 MG TAB PO SCH (08:27)
[2018-12-02] MEDS: PHOS-NAK 1 PKT PACK PO SCH ×2 (08:27→20:20)
[2018-12-02] MEDS: Furosemide 20 MG TAB PO SCH (08:27)
[2018-12-02] MEDS: Aspirin Chewable 81 MG TAB PO SCH ×2 (08:27→20:17)
[2018-12-02] MEDS: Polyethylene Glycol 3350 17 GM Packet PO SCH ×2 (08:27→20:20)
[2018-12-02] MEDS: Tamsulosin HCl 0.4 MG CAP PO SCH (08:27)
[2018-12-02] MEDS: Docusate Calcium (SURFAK) 240 MG CAP PO SCH ×2 (08:27→20:18)
[2018-12-02] MEDS: Midodrine HCl 5 MG TAB PO SCH ×3 (08:27→20:18)
[2018-12-02] MEDS: Citrucel 500 MG TAB PO SCH (08:28)
[2018-12-02] MEDS: Metoprolol Tartrate 25 MG TAB PO SCH (08:28)
--- NOTE | 2018-12-02 11:48 | PRG ---
DATE OF SERVICE: 11/30/2018 SUBJECTIVE: The patient is _83 years old male who was coming for evaluation of _ hip pain after a ground level fall. He was diagnosed with L hip fracture . He has a history of MM with chemotherapy, bypass, pacemaker, BPH, R shoulder Shingle. He was underwent L hip replacement . how is the patient doing today. Overnight event ____no . Ambulation limited . Nausea and vomiting ___no . Pain ___no . Fever no . Shortness of breath ___no . Having bowel movement ____yes . OBJECTIVE: VITAL SIGNS: Current temperature ____98 , current heart rate ___78 , current blood pressure __130/80 , current respiratory rate __15 , current O2 sat ____99 . GENERAL: Well-appearing, alert, and awake, in no acute respiratory distress. HEENT: Normocephalic and atraumatic. RESPIRATORY: No respiratory distress. LUNGS: Clear to auscultation bilaterally. CARDIOVASCULAR: Regular rate and rhythm. ABDOMEN: Abdomen is soft, nontender, and nondistended. No deformity. Rebound and guarding negative. EXTREMITIES: Warm and well perfused. NEUROLOGIC: Intact neurological. Oriented x3. IMAGING RESULTS: No new imaging to be reviewed. ASSESSMENT: Status post ground level fall L hip fracture Post op L hip replacement History of MM, CVD, pacemaker, BPH , Shingle stable PLAN: Continue to be working with PT/OT Continue prophylaxis regimen, spirometer incentive, DVT prophylaxis, gastritis prophylaxis Placement plan __rehab after being stable Job ID: [id number] MTD
--- NOTE | 2018-12-02 12:00 | PQF ---
CLINICAL DOCUMENTATION IMPROVEMENT CLARIFICATION FORM: ICD-10 Updated PLEASE DO AN ADDENDUM TO THE PROGRESS NOTE WITH ANY DOCUMENTATION UPDATES OR ADDITIONS AND CARRY THROUGH TO DC SUMMARY. THANK YOU. DATE: 12/02/18 ATTN: Sanjeev LITTLE PA-C Please exercise your independent, professional judgment in responding to the clarification form. Clinical indicators are provided on the bottom of this form for your review Please check appropriate box(s): [ ] Acute blood loss anemia [ X ] Post-op anemia related to acute blood loss [ ] Anemia: [ ] Aplastic [ ] Nutritional [ ] Drug induced (specify) ___ [ ] Hemolytic [ ] Hereditary [ ] Acquired [ ] Autoimmune [ ] Non-autoimmune [ ] Enzyme disorder [ ] Chronic Anemia: [ ] Blood loss [ ] Hemolytic [ ] Simple [ ] Due to Vitamin B12 Deficiency [ ] Other [ ] Anemia of Chronic Disease (please specify) [ ] Anemia due to Neoplasm: [ ] Primary [ ] Secondary [ ] Anemia due to (please choose): [ ] Due to Chemotherapy [ ] Due to Radiotherapy [ ] Due to Immunotherapy [ ] Other diagnosis [ ] Unable to determine In addition, please specify: Present on Admission (POA): [ ] Yes [ ] No [ X ] Unable to determine For continuity of documentation, please document condition throughout progress notes and discharge summary. Thank You. CLINICAL INDICATORS - SIGNS / SYMPTOMS / LABS PROGRESS NOTE 12/01: "ANEMIA" HGN 11/27: 9.8 HGN 11/28: 7.6 RISKS: LEFT FEMUR NAILING TREATMENT: BLOOD TRANSFUSIONS X 2 SERIAL LABS (This form is maintained as a part of the permanent medical record) 2014 [employer]. All Rights Reserved [email or web address] Office: [phone] MARIAH
[2018-12-02 15:19] LABS: Bilirubin Negative (Negative); Blood, Urine Negative (Negative); Clarity Clear (Clear); Glucose, Urine (Dipstick) Normal (Negative); Leukocyte Negative Leu/uL (Negative); Nitrite Negative (Negative); Protein, Urine (Dipstick) 10 mg/dL (Neg-Trace); Urobilinogen Normal mg/dL (Less than 2)
--- NOTE | 2018-12-02 15:48 | PRG ---
DATE OF SERVICE: 12/02/2018 SUBJECTIVE: The patient is an 83-year-old gentleman, who come in for evaluation of left hip pain after a fall. The patient was diagnosed with left hip fracture. He underwent left hip replacement. He has a history of multiple myeloma, and he had chemotherapy, cardiovascular disease, bypass, shingles, BPH. No overnight events. The patient reports no fever, no shortness of breath. He has a little bit of urinary retention, but eventually he voiding by himself. He is on heart healthy diet with Ensure supplement. Ambulation limited. Pain control is good. OBJECTIVE: GENERAL: The patient is alert and oriented to person, place, and time. VITAL SIGNS: Temperature 97, respiratory rate is 18, heart rate 79, blood pressure 122/69. HEENT: Normal for inspection and palpation. NECK: Normal range of motion. Trachea midline. RESPIRATORY: Breath sounds clear. No wheezing. No rales. CARDIOVASCULAR: Regular rate and rhythm. ABDOMEN: Nontender. Bowel sounds normal. BACK: Normal inspection. Normal range of motion. No CVA. EXTREMITIES: Upper extremities; normal range of motion. Lower extremities; normal inspection, normal range of motion. NEUROLOGIC: No focal neuro deficits. SKIN: Healing shingles of the right. Chest. LABORATORY DATA: Hemoglobin 7.6, white blood count 6.9. Sodium is 136. Phosphorus is 2.1. Magnesium 1.9. Creatinine 0.84. ASSESSMENT status post fall L hip fracture Post op L hip TFN intertrochanteric femur fracture d4 History of MM, CVD, pacemaker, BPH, PLAN: 1. Continue supportive treatment. Phosphorus replacement 2. Continue to work with PT/OT to gain his muscle strength. 3. Continue prophylaxis DVT and gastritis. 4. Hemoglobin 7.6 , taking to consideration his heart disease, Dr. Molina decided to transfuse him units of blood and he can be discharge to alf home facility tomorrow. Job ID: [id number] [facility]
[2018-12-02] MEDS: Ascorbic Acid 500 mg Chewable Tablet PO SCH (17:14)
[2018-12-02] MEDS: Ferrous Sulfate 325 MG TAB PO SCH (17:14)
[2018-12-02] MEDS: Melatonin 3 MG TAB PO SCH (20:18)
[2018-12-02] MEDS: traMADol HCl 50 MG TAB PO PRN (21:08)
[2018-12-03] MEDS: Acetaminophen 500 MG TAB PO SCH ×3 (01:13→13:33)
[2018-12-03] MEDS: Hydrocortisone Sod Succ/PF 100 mg/2 ml Vial IVP SCH (02:20)
[2018-12-03] MEDS: valACYclovir 500 MG TAB PO SCH ×2 (05:59→15:23)
[2018-12-03 06:09] LABS: #Lymphocytes 0.8 thou/uL (1.20-3.40); #Monocytes 0.3 thou/uL (0.11-0.59); #Neutrophils 4.3 thou/uL (1.40-6.50); %Basophils 0.1 % (0.0-1.0); %Eosinophils 0.2 % (0.0-10.0); %Lymphocytes 14.7 % (21.0-51.0); %Monocytes 5.2 % (0.0-10.0); %Neutrophils 79.8 % (42.0-75.0); Hemoglobin 8.4 g/dL (14.0-18.0); Mean Corpuscular HGB CONC 33.7 g/dL (32.0-36.0); Mean Corpuscular Hemoglobin 33.3 pg (27.0-31.0); Mean Corpuscular Volume 98.8 fL (78.0-98.0); Mean Platelet Volume 8.3 fL (7.4-10.4); Platelet Count 101 thou/uL (130-400); RBC Distribution Width 16.2 % (11.5-14.5); Red Blood Cell (RBC) Count 2.51 mill/uL (4.70-6.10); White Blood Cell (WBC) Count 5.3 thou/uL (4.8-10.8)
[2018-12-03 06:26] LABS: Anion Gap 10 mmol/L (10-20); BUN (Urea Nitrogen) 27 mg/dL (8.4-25.7); Calc. Creatinine Clearance 65 mL/min (70-130); Calcium 8.3 mg/dL (7.8-10.44); Carbon Dioxide 25 mmol/L (23-31); Chloride 103 mmol/L (98-107); Estimated GFR-MDRD Greater than 90; Glucose 109 mg/dL (83-110); Magnesium 1.5 mg/dL (1.6-2.6); Phosphorus 2.2 mg/dL (2.3-4.7); Potassium 4.1 mmol/L (3.5-5.1); Sodium 134 mmol/L (136-145)
[2018-12-03] MEDS ORDERED: PHOS-NAK 1 PKT PACK PO SCH (07:00)
[2018-12-03] MEDS ORDERED: Magnesium 2 GM/50 ML 4 GM in Premix Bag 1 BAG IVPB SCH (07:00)
[2018-12-03] MEDS ORDERED: Magnesium Sulfate 4 GM in Sodium Chloride 0.9% 250 ML 250 ML IVPB SCH (07:00)
[2018-12-03] MEDS: Midodrine HCl 5 MG TAB PO SCH ×2 (08:44→14:34)
[2018-12-03] MEDS: Amiodarone 200 MG TAB PO SCH (08:45)
[2018-12-03] MEDS: Furosemide 20 MG TAB PO SCH (08:45)
[2018-12-03] MEDS: Ferrous Sulfate 325 MG TAB PO SCH (08:45)
[2018-12-03] MEDS: Citrucel 500 MG TAB PO SCH (08:45)
[2018-12-03] MEDS: Ascorbic Acid 500 mg Chewable Tablet PO SCH (08:46)
[2018-12-03] MEDS: Aspirin Chewable 81 MG TAB PO SCH (08:46)
[2018-12-03] MEDS: Polyethylene Glycol 3350 17 GM Packet PO SCH (08:46)
[2018-12-03] MEDS: Dutasteride 0.5 MG CAP PO SCH (08:46)
[2018-12-03] MEDS: Tamsulosin HCl 0.4 MG CAP PO SCH (08:46)
[2018-12-03] MEDS: Docusate Calcium (SURFAK) 240 MG CAP PO SCH (08:46)
[2018-12-03 11:35] VITALS: TEMP 97.2
[2018-12-03 14:51] VITALS: BP 110/61
[2018-12-03] MEDS ORDERED: Gabapentin 100 MG CAP PO SCH (15:00)
--- NOTE | 2018-12-03 21:12 | DIS ---
DATE OF ADMISSION: 11/27/2018 DATE OF DISCHARGE: 12/03/2018 ADMISSION DIAGNOSIS: Fall from bed, left intertrochanteric femur fracture. DISCHARGE DIAGNOSIS: Fall from bed, left intertrochanteric femur fracture. CONSULTING PHYSICIAN: Dr. Dobbs of Orthopedic Surgery and Dr. Lilly of Cardiology. PROCEDURES: He received a left intertrochanteric TFN on November 28, 2018. HOSPITAL COURSE: The patient is an 83 year old male who presented to the emergency department after a fall from bed. He had a left subtrochanteric hip fracture and a history of multiple myeloma, CHF, CABG, dysphagia, NV x3, pacemaker, AICD, GERD , and BPH. Cardiology was consulted for risk stratification of operative intervention and they recommended fixation on November 28. The patient went to the OR with Dr. Dobbs and had a left intertrochanteric TFN. Postoperatively, the patient worked with Physical and Occupational Therapy. He did receive some blood products, but at the time of discharge, his hemoglobin was stable. His pain was well controlled. He was tolerating a heart healthy diet and Ensure b.i.d. He was on aspirin for DVT prophylaxis. He was having bowel movements and voiding without difficulties. DISCHARGE DISPOSITION: correction facility. DISCHARGE CONDITION: Satisfactory. PHYSICAL EXAMINATION: VITAL SIGNS: Temperature 97.2, pulse 81, respirations 18, oxygen saturation 97 % on room air, blood pressure 110/61. GENERAL: Well-appearing elderly male, sitting up in chair with no signs of acute distress. PULMONARY: Equal chest rise and fall. Clear breath sounds bilaterally. No signs of acute respiratory distress. CARDIAC: Regular rate and rhythm. No murmurs, gallops, or rubs. GASTROINTESTINAL: Soft, nontender, nondistended. EXTREMITIES: 2+ pulses in all extremities. No significant swelling noted. Gross motor and sensation are intact. NEUROLOGIC: GCS is 15. Pupils are equal, round, reactive to light bilaterally. DISCHARGE INSTRUCTIONS: The patient was discharged to acute rehab, activity as tolerated and weightbearing as tolerated in all extremities. Heart healthy diet with Ensure b.i.d. Occupational and Physical Therapy to see the patient. The patient also to receive incentive spirometer and walker. DISCHARGE MEDICATIONS: Include; 1. Melatonin. 2. Protonix. 3. Entresto. 4. Tramadol. 5. Flomax. 6. Colace. 7. Metoprolol. 8. Amiodarone. 9. MiraLAX. 10. Citracal. 11. Midodrine. 12. Dexamethasone. 13. Valtrex. 14. Silvadene cream. 15. Calamine lotion. 16. Bacitracin/polymyxin B sulfate ointment. FOLLOWUP APPOINTMENTS: The patient is to follow up with Dr. Lilly in 2 to 3 weeks and he is to follow up with Dr. Molina as needed. He is to call Dr. Dobbs for followup instructions. This is merely a summary of the patient's hospitalization. For full details, please see his medical record in its entirety. Job ID: [id number] MTDD
[2018-12-05] MEDS ORDERED: Dexamethasone 4 MG TAB PO SCH (09:00)
== END 2018-12-03 14:50 | DRG 481 ==
LOC: ERS 13:07 → SURG A 15:07 → EEVIPCON 15:07 → CCU 11-28 19:46 → SURG A 11-29 14:14
PROVIDERS: ADMIT Surgery; ATTEND Surgery
PROC: 0QHC06Z Insertion of Intramedullary Internal Fixation Device into Left Lower Femur, Open Approach (ICD-10-PCS; principal; 2018-11-28)
DX: M84.552A Pathological fracture in neoplastic disease, left femur, initial encounter for fracture (principal); C90.00 Multiple myeloma not having achieved remission; I50.22 Chronic systolic (congestive) heart failure; D62 Acute posthemorrhagic anemia; W06.XXXA Fall from bed, initial encounter; K21.9 Gastro-esophageal reflux disease without esophagitis; N40.0 Benign prostatic hyperplasia without lower urinary tract symptoms; I25.10 Atherosclerotic heart disease of native coronary artery without angina pectoris; I11.0 Hypertensive heart disease with heart failure; I25.5 Ischemic cardiomyopathy; Z88.5 Allergy status to narcotic agent; I25.2 Old myocardial infarction; Z95.810 Presence of automatic (implantable) cardiac defibrillator; Z79.899 Other long term (current) drug therapy; Z79.82 Long term (current) use of aspirin
CPT/HCPCS: 36415; 36430; 71045; 76000; 80048; 80053; 81003; 82533; 82550; 82553; 82805; 83605; 83735; 84100; 84484; 85025; 85610; 85730; 86850; 86900; 86901; 88184; 88307; 88341; 88342; 93005; 93010; 93306; C1713; C1769; J0131; J0690; J1100; J1720; J1885; J1940; J2001; J2370; J2405; J2704; J2795; J3010; J3475; J3490; J7050; P9016

== ENCOUNTER 2018-12-09 20:30 | Inpatient (IN) | payer MEDICARE, MEDICAID ==
[~2018-12-09 20:30] MED LIST changes: -Dexamethasone 4 MG TAB PO SCH; +ISOVUE-370 76%-LOCM 1 ML ONE
[2018-12-09 21:02] LABS: #Lymphocytes 0.4 thou/uL (1.20-3.40); #Monocytes 0.3 thou/uL (0.11-0.59); #Neutrophils 4.3 thou/uL (1.40-6.50); %Basophils 0.4 % (0.0-1.0); %Eosinophils 0.1 % (0.0-10.0); %Lymphocytes 8.5 % (21.0-51.0); %Monocytes 6.7 % (0.0-10.0); %Neutrophils 84.3 % (42.0-75.0); Mean Corpuscular HGB CONC 33.2 g/dL (32.0-36.0); Mean Corpuscular Hemoglobin 33.6 pg (27.0-31.0); Mean Platelet Volume 7.7 fL (7.4-10.4); Platelet Count 149 thou/uL (130-400); RBC Distribution Width 16.4 % (11.5-14.5); Red Blood Cell (RBC) Count 2.38 mill/uL (4.70-6.10); White Blood Cell (WBC) Count 5.1 thou/uL (4.8-10.8)
[2018-12-09 21:08] LABS: Bilirubin Small (Negative); Blood, Urine Large (Negative); Glucose, Urine (Dipstick) Negative (Negative); Leukocyte Small (Negative); Nitrite Positive (Negative); Protein, Urine (Dipstick) > or equal to 300 mg/dL (Neg-Trace)
[2018-12-09 21:17] LABS: Bacteria/HPF 1+ HPF (None Seen); Clarity Turbid (Clear); RBC/HPF Greater than 50 HPF (0-3); Squamous Epithelial 0-3 HPF (0-3)
[2018-12-09 21:22] LABS: ALT (SGPT) 47 U/L (8-55); AST (SGOT) 56 U/L (5-34); Albumin 2.6 g/dL (3.4-4.8); Alkaline Phosphatase 161 U/L (40-150); Anion Gap 15 mmol/L (10-20); BUN (Urea Nitrogen) 33 mg/dL (8.4-25.7); Bilirubin, Total 0.8 mg/dL (0.2-1.2); CK (CPK) 28 U/L (30-200); Calc. Creatinine Clearance 0 mL/min (70-130); Calcium 8.4 mg/dL (7.8-10.44); Carbon Dioxide 25 mmol/L (23-31); Chloride 96 mmol/L (98-107); Estimated GFR-MDRD 86; Globulin 4.7 g/dL (2.4-3.5); Glucose 114 mg/dL (83-110); Lipase 14 U/L (8-78); Potassium 4.6 mmol/L (3.5-5.1); Protein, Total 7.3 g/dL (5.8-8.1); Sodium 131 mmol/L (136-145)
--- NOTE | 2018-12-09 21:29 | RAD ---
AP CHEST: INDICATIONS: Chest pain. COMPARISON: 11/30/2018 FINDINGS: Cardiomegaly. Fixed diaphragmatic hernia again noted. New parenchymal opacity in the right lung base is present today, indicating focal atelectasis or infi ltrate. There are lucent lesions seen involving the visualized right humerus. These were present previously. Recommend clinical correlation regarding osseous abnormality, such as multiple myeloma. IMPRESSION: 1. New infiltrate or atelectasis in the right lung base. 2. Numerous lucent osseous lesions again noted. POS: J[facility]
--- NOTE | 2018-12-09 21:35 | CT ---
CTA CHEST: INDICATIONS: Chest pain. TECHNIQUE: Axial tomograms obtained with multiplanar reconstruction and 3D post processing, following angio prot ocol. FINDINGS: Motion artifact degrades the study. No definite evidence of pulmonary embolus. There are chronic lung parenchymal changes. Small right pleural effusion and right basilar atelectas is or consolidation. Large, fixed diaphragmatic hernia. The bones are osteopenic with compression d eformities in the thoracic vertebrae. IMPRESSION: 1. Examination is degraded due to motion artifact. No definite pulmonary embolus identified. 2. Right pleural effusion and right basilar atelectasis or infiltrate with consolidation. 3. Large, fixed diaphragmatic hernia. POS: [facility]
[2018-12-09] MEDS ORDERED: cefTRIAXone\\ROCEPHIN 1 GM VIAL ONE (21:59)
[2018-12-10 00:51] LABS: Troponin I 0.041 ng/mL (< 0.028)
[2018-12-10 01:23] VITALS: BMI 23.9
[2018-12-10] MEDS ORDERED: Ondansetron ODT 4 MG TAB PO PRN (03:11)
[2018-12-10] MEDS ORDERED: Acetaminophen 325 MG TAB PO PRN (03:11)
[2018-12-10] MEDS ORDERED: Ondansetron PF 4 MG/2 ML Vial IVP PRN (03:11)
[2018-12-10] MEDS ORDERED: Acetaminophen 650 MG Suppository PR PRN (03:11)
[2018-12-10] MEDS ORDERED: Senokot S 8.6-50 MG TAB PO PRN (03:11)
[2018-12-10 03:28] LABS: Troponin I 0.037 ng/mL (< 0.028)
[2018-12-10] MEDS ORDERED: Acetaminophen 500 MG TAB PO PRN (03:52)
[2018-12-10] MEDS ORDERED: traZODone HCl 50 MG TAB PO PRN (03:52)
[2018-12-10] MEDS ORDERED: Simethicone Chewable 80 MG TAB PO PRN (03:52)
[2018-12-10] MEDS ORDERED: cloNIDine 0.1 MG TAB PO PRN (03:52)
[2018-12-10 04:38] LABS: #Lymphocytes 0.7 thou/uL (1.20-3.40); #Monocytes 0.5 thou/uL (0.11-0.59); #Neutrophils 3.3 thou/uL (1.40-6.50); %Basophils 0.1 % (0.0-1.0); %Eosinophils 0.3 % (0.0-10.0); %Lymphocytes 15.6 % (21.0-51.0); %Monocytes 11.4 % (0.0-10.0); %Neutrophils 72.5 % (42.0-75.0); Hemoglobin 7.9 g/dL (14.0-18.0); Mean Corpuscular HGB CONC 32.8 g/dL (32.0-36.0); Mean Corpuscular Hemoglobin 33.3 pg (27.0-31.0); Mean Platelet Volume 7.9 fL (7.4-10.4); Platelet Count 139 thou/uL (130-400); RBC Distribution Width 16.3 % (11.5-14.5); Red Blood Cell (RBC) Count 2.38 mill/uL (4.70-6.10); White Blood Cell (WBC) Count 4.6 thou/uL (4.8-10.8)
[2018-12-10 04:54] LABS: Anion Gap 13 mmol/L (10-20); BUN (Urea Nitrogen) 31 mg/dL (8.4-25.7); Calc. Creatinine Clearance 63 mL/min (70-130); Calcium 8.4 mg/dL (7.8-10.44); Carbon Dioxide 25 mmol/L (23-31); Chloride 97 mmol/L (98-107); Estimated GFR-MDRD Greater than 90; Glucose 102 mg/dL (83-110); Potassium 4.4 mmol/L (3.5-5.1); Sodium 131 mmol/L (136-145)
--- NOTE | 2018-12-10 04:56 | HP ---
PRIMARY CARE PHYSICIAN: Dr. Connell. CHIEF COMPLAINT: Chest pain. HISTORY OF PRESENT ILLNESS: Mr. Jacobo is an 83-year-old gentleman who presents with complaints of sudden onset chest pain that will come up from his sleep. The patient states it lasted approximately 15 minutes, it was a 10/10 in severity. It eventually eased about 4/10 after given nitroglycerin at the [facility] where he has recently been. The patient states the pain was stabbing in nature and nonradiating, present in the center of his chest. He states it felt similar to the pain he had back in July of this year, during which time he was found to have an CO. The patient reports having issues with discomfort in the right upper chest and shoulder region due to known shingles. He has been on treatment and the vesicles have crusted over. He does still have underlying neuropathic type pain. With regard to the chest pain today, the patient denies having any increased shortness of breath. He denies any cough or hemoptysis. No abdominal pain or cramping. He does report issues with dysuria requiring a catheter placement due to urinary retention and hematuria. The patient also does state that he has been under a significant amount of stress due to his daughter whom he is not getting along well with and being concerned that she has been involved in drug use and potentially may have been hurt. He has not tried contacting the authorities. He states she does disappear for a couple of days and sometimes up to 3 weeks at a time. Of note, the patient had a fall early November resulting in a left intertrochanteric femur fracture status post TFN on 11/28/2018. PAST MEDICAL HISTORY: 1. Anemia. 2. Malignancy. 3. Multiple myeloma, undergoing treatment. Last chemotherapy was 10/30/2018. 4. Stage 3 pressure ulcer. 5. CHF. 6. Ventricular fibrillation. 7. Compression fractures. 8. Cognitive communication deficit. 9. CO x3. 10. Pacemaker. 11. Treated with AICD. 12. GERD. 13. BPH. PAST SURGICAL HISTORY: 1. CABG x5. 2. Orthopedic surgery. 3. Right rotator cuff repair. 4. Right cataract surgery. SOCIAL HISTORY: The patient reports drinking alcohol rarely. Denies any smoking or tobacco use. ALLERGIES: OPIOIDS. CURRENT MEDICATIONS: 1. Amiodarone. 2. Aspirin. 3. Citracal. 4. Dexamethasone. 5. Docusate calcium. 6. Metoprolol tartrate. 7. Midodrine. 8. MiraLAX. 9. Pantoprazole. 10. Silvadene. 11. Tamsulosin. 12. Tylenol Extra Strength. 13. Valtrex. PHYSICAL EXAMINATION: GENERAL: The patient appears very thin, frail, cachectic appearing with generalized muscle wasting. No acute distress. VITAL SIGNS: Temperature 98.2, pulse 72, respirations 18, O2 saturation 97% on room air, blood pressure 119/60. HEENT: Normocephalic and atraumatic. Pupils are equal, round, and reactive to light. Sclerae without icterus. Oropharynx is clear. NECK: Supple. LUNGS: Reduced breath sounds at the bases. No wheezes, rales, or rhonchi. CARDIAC: Normal heart sounds. S1 and S2. ABDOMEN: Soft, nontender, nondistended with bowel sounds present. EXTREMITIES: No lower leg swelling or edema. No calf tenderness. NEUROLOGICAL: Alert and oriented x3. Skin without rash or jaundice. SKIN: The patient with well healed vesicular lesions involving the right upper chest along the dermatome, obviously very well healing shingles clusters. LABORATORY DATA: White count 5.1, hemoglobin 8, hematocrit 24.1, platelets 149. Sodium 131, potassium 4.6, chloride 96, anion gap 15, BUN 33, creatinine 0.85, GFR 86, glucose 114, calcium 8.4, total bilirubin 0.8, AST 56, ALT 47, alkaline phosphatase 161. CK 28. Troponin 0.016, 0.041. Total protein 7.3, albumin 2.64, and lipase 14. Urinalysis notable for turbid urine, pH 7, protein equal to or greater than 300, ketones 15, blood large, nitrite positive, bilirubin small, leukocyte esterase small, red blood cells greater than 50, white blood cells 7-10, bacteria 1+. IMAGING DATA: 1. Chest x-ray, new infiltrate or atelectasis in the right lung base, numerous osseous lesions again noted. 2. CTA of the chest, 12/09/2018. Motion artifact. No definite pulmonary embolus identified. Right pleural effusion and right basilar atelectasis or infiltrate with consolidation. Largely fixed diaphragmatic hernia. 3. Echo 11/28/2018. EF 25% to 30%. Akinetic motion of the inferior wall noted in left ventricle. Global hypokinesis. Moderate mitral regurgitation. Moderate to severe aortic regurgitation and moderate to severe tricuspid regurgitation. IMPRESSION AND PLAN: Mr. Jacobo is a pleasant 83-year-old man who is being admitted for management of the followin. Recurrent chest pain. The patient with a history of myocardial infarction x3 , who states that the pain came on suddenly and woke him from sleep. It was severe. We are trending troponins. Initial troponin negative and second was indeterminate. EKG done in the emergency department showed normal ST segments with no T-wave abnormalities. Ventricular pacemaker noted on the EKG reading. We will continue to trend troponins. Given extensive cardiac history and indeterminate/elevated troponin, we will hold off on any additional investigations with regard to acute coronary syndrome rule out and we will place consultation with Cardiology. BNP added on. 2. Right pleural effusion. This was not seemed to be infective in nature as the patient does not have a white count and is not symptomatic and he is afebrile. We will add procalcitonin. He has been given Rocephin x1 in the emergency department. If the procalcitonin elevates, would indicate the possibility of infection. We will also add on lactic acid. This will be done to assess if effusion is truly an infective process. An echo done recently, therefore will not be repeated. 3. Anxiety. The patient seems to be very anxious and emotionally distressed over issues he is having with his daughter. He mentioned his daughter has been involved with drugs and often disappears for a prolonged period of time. The patient expressed concern over the daughter having been murdered due to not seeing her for 3 weeks. The patient also concerned about his belongings that were left at [facility] and requesting assistance with obtaining these, though very much willing to hire someone to do for him. 4. Hypertension. Resume home medications once reconciled. Monitor blood pressure. 5. Congestive heart failure. The patient on Lasix 20 mg daily. Pleural effusion noted on imaging associated with congestive heart failure, especially given recent echocardiogram findings. We will continue Lasix. Again, awaiting BNP. 6. Gastrointestinal prophylaxis. 7. Deep venous thrombosis prophylaxis with mechanical SCDs. 8. Code status, full at present. The patient unable to indicate who his surrogate decision maker would be at this present time. The patient's case was discussed with Dr. Lozada, who agrees with the plan of care as described above. Job ID: [id number] [facility]
[2018-12-10] MEDS: valACYclovir 500 MG TAB PO SCH ×4 (05:07→21:27)
[2018-12-10] MEDS ORDERED: Amiodarone 200 MG TAB PO SCH (09:00)
[2018-12-10] MEDS: Gabapentin 100 MG CAP PO SCH ×4 (09:09→21:26)
[2018-12-10] MEDS: Ferrous Sulfate 325 MG TAB PO SCH ×2 (09:10→18:06)
[2018-12-10] MEDS: Docusate Calcium (SURFAK) 240 MG CAP PO SCH ×2 (09:10→21:29)
[2018-12-10] MEDS: Amiodarone 200 MG TAB PO SCH (09:10)
[2018-12-10] MEDS: Furosemide 20 MG TAB PO SCH (09:10)
[2018-12-10] MEDS: Metoprolol Tartrate 25 MG TAB PO SCH (09:10)
[2018-12-10] MEDS: Tamsulosin HCl 0.4 MG CAP PO SCH (09:10)
[2018-12-10] MEDS: Ascorbic Acid 500 mg Chewable Tablet PO SCH ×2 (09:10→18:06)
[2018-12-10] MEDS: Aspirin Chewable 81 MG TAB PO SCH ×2 (09:10→21:26)
[2018-12-10] MEDS: Midodrine HCl 5 MG TAB PO SCH ×3 (09:10→18:06)
[2018-12-10] MEDS: traMADol HCl 50 MG TAB PO PRN ×2 (09:11→18:04)
[2018-12-10] MEDS: Dutasteride 0.5 MG CAP PO SCH (09:11)
[2018-12-10] MEDS: Famotidine/PF 20 mg/2ml Vial SLOW IVP SCH ×2 (09:12→21:29)
--- NOTE | 2018-12-10 18:33 | CON ---
DATE OF CONSULTATION: REASON FOR CONSULTATION: Chest pain. HISTORY OF PRESENT ILLNESS: Mr. Jacobo is an unfortunate 83-year-old gentleman who has a history of CAD, status post bypass surgery 22 years ago. He also states he had myocardial infarction less than 1 year ago and underwent coronary angiography in [place], [place]. He states no intervention was performed. Those records not currently available. He also recently broke his hip and underwent surgery. He has been undergoing rehab. He states he had a recent onset of acute chest pain. This woke him from sleep. No other associated ameliorating or exacerbating factors are noted. His CK and troponin have been negative. EKGs have been unchanged. PAST MEDICAL HISTORY: As above, including myeloma and rotator cuff repair. ALLERGIES: OPIOID. FAMILY HISTORY: Negative for CAD. REVIEW OF SYSTEMS: A 10-point review of systems is reviewed and as above, otherwise negative. PHYSICAL EXAMINATION: GENERAL: Patient is a pleasant 83-year-old man who is in no acute distress. The patient appears their stated age. He does appear weak. VITAL SIGNS: Blood pressure 127/81, pulse 78, and temperature 98.1. NEUROLOGIC: The patient is alert and oriented x3 with no focal neurologic deficits. HEENT: Sclerae without icterus. Mouth has moist mucous membranes with normal pallor. NECK: No JVD. Carotid upstroke brisk. No bruits bilaterally. LUNGS: Clear to auscultation with unlabored respirations. BACK: No scoliosis or kyphosis. CARDIAC: Regular rate and rhythm with normal S1 and S2. No S3 or S4 noted. No significant rubs, murmurs, thrills, or gallops noted throughout the precordium. PMI is not displaced. There is no parasternal heave. ABDOMEN: Soft, nontender, nondistended. No peritoneal signs present. No hepatosplenomegaly. No abnormal striae. EXTREMITIES: 2+ femoral and 2+ dorsalis pedis pulses. No cyanosis, clubbing, or edema. SKIN: No gross abnormalities. PERTINENT LABORATORY DATA: Hemoglobin 7.9. Creatinine 0.8. Peak troponin 0.041. BNP of 2507. Last echo with Doppler with EF 25% to 30% and aizjzhkt-db-qfdaot TR. IMPRESSION: 1. Chest pain. 2. Coronary artery disease. 3. Previous myocardial infarction. 4. Status post bypass surgery. 5. Anemia. RECOMMENDATIONS: Certainly difficult case. His CK and troponins are negative. He is certainly at risk of complications with a more aggressive approach. I have recommended medical therapy in the past. May consider a noninvasive stress study once he is more stable, but I do not feel comfortable proceeding with a noninvasive stress study or with angio with negative enzymes on a hemoglobin of 7.9. We will continue current medical therapy and try and obtain records from [place], [place]. Job ID: [id number]
[2018-12-10] MEDS ORDERED: Melatonin 3 MG TAB PO SCH (21:00)
[2018-12-10] MEDS ORDERED: cefTRIAXone\\ROCEPHIN 1 GM in Sodium Chloride 0.9% 100 ML IVPB SCH (22:00)
[2018-12-11] MEDS ORDERED: Furosemide 40 MG/4 ML VIAL SLOW IVP SCH ×2 (04:30→08:45)
[2018-12-11 04:36] LABS: Actual Bicarbonate (HCO3a) 17.7 mEq/L (22-28); Base Excess (BEa) -5.6 mEq/L (-2.0 to +3.0); CO2 Tension 27.5 mmHg (35.0-45.0); Calcium, Ionized 1.11 mmol/L (1.12-1.30); Carboxyhemoglobin (COHb) 1.4 gm% (0.0-3.0); Hemoglobin (Hb) 10.3 g/dL (14.0-18.0); O2 Tension (PaO2) 71.4 mmHg (> 60.0); pH, Arterial 7.43 (7.35-7.45)
[2018-12-11 04:38] VITALS: TEMP 98.1
[2018-12-11 04:38] LABS: ALV-art Gradient 179.425 (0-20); Puncture Site LRA
[2018-12-11] MEDS ORDERED: Cefepime 2 GM in Sodium Chloride 0.9% 100 ML IVPB SCH (05:00)
[2018-12-11] MEDS ORDERED: Vancomycin HCl 1 GM in Premix Bag 1 BAG IVPB SCH (06:00)
[2018-12-11] MEDS: valACYclovir 500 MG TAB PO SCH (06:25)
--- NOTE | 2018-12-11 07:36 | RAD ---
Frontal radiograph chest: 12/11/2018 COMPARISON: 12/09/2018 HISTORY: Shortness of breath, hypoxia FINDINGS: Multiple lytic lesions are noted within the right humerus concerning for multiple myeloma o r metastatic disease. Stable multilead transvenous pacing device and midline sternotomy wires. No pneumothorax. There is pulmonary vascular congestion. There is worsening aeration in bilateral perihilar regions an d both lung bases with new interstitial and alveolar opacity in the perihilar regions and both lung bases as well as developing bilateral pleural effusions. IMPRESSION: Findings suggesting interval development of pulmonary edema. Infectious pneumonitis or as piration cannot be excluded. Lytic lesions within right humerus suspicious for multiple myeloma or metastatic disease.
[2018-12-11] MEDS ORDERED: Furosemide 40 MG/4 ML VIAL ONE (08:35)
[2018-12-11] MEDS ORDERED: Sodium Bicarb 50 MEQ/50 ML VIAL ONE (09:20)
--- NOTE | 2018-12-11 09:27 | RAD ---
EXAM: Single view of the chest HISTORY: Respiratory failure status post CODE BLUE COMPARISON: 12/11/2018 at 4:08 AM FINDINGS: Single view of the chest shows an enlarged but stable cardiomediastinal silhouette. The pa tient is status post sternotomy. There is an endotracheal tube with its tip in good position between the clavicles. The pacemaker is unchanged in position. There appears to be a right pleural ef fusion with adjacent atelectasis versus infiltrate. There is no evidence of consolidation, mass, or pleural effusion. The bones are unremarkable. IMPRESSION: Appropriate position of endotracheal tube.
[2018-12-11] MEDS ORDERED: Sodium Bicarb 50 MEQ/50 ML Abboject 8.4% SYRINGE IVP SCH (09:30)
[2018-12-11 09:31] VITALS: BP 91/61
[2018-12-11 09:34] LABS: Actual Bicarbonate (HCO3a) 17.1 mEq/L (22-28); Base Excess (BEa) -4.8 mEq/L (-2.0 to +3.0); Calcium, Ionized 1.07 mmol/L (1.12-1.30); Carboxyhemoglobin (COHb) 1.5 gm% (0.0-3.0); Hemoglobin (Hb) 12.1 g/dL (14.0-18.0); O2 Tension (PaO2) 75.3 mmHg (> 60.0); Potassium - ABG Lab 4.91 mmol/L (3.70-5.30); pH, Arterial 7.48 (7.35-7.45)
[2018-12-11 09:35] LABS: CO2 Tension 23.6 mmHg (35.0-45.0); Puncture Site LR
[2018-12-11 09:35] LABS: Actual Bicarbonate (HCO3a) 12.7 mEq/L (22-28); Base Excess (BEa) -13.3 mEq/L (-2.0 to +3.0); Calcium, Ionized 1.07 mmol/L (1.12-1.30); Carboxyhemoglobin (COHb) 1.3 gm% (0.0-3.0); Hemoglobin (Hb) 10.9 g/dL (14.0-18.0); O2 Tension (PaO2) 146.9 mmHg (> 60.0); Potassium - ABG Lab 5.62 mmol/L (3.70-5.30)
[2018-12-11 09:36] LABS: pH, Arterial 7.25 (7.35-7.45)
[2018-12-11] MEDS ORDERED: Propofol 1,000 MG/100 ML VIAL IV ONE (09:48)
[2018-12-11 09:51] LABS: Magnesium 2.1 mg/dL (1.6-2.6); Phosphorus 4.8 mg/dL (2.3-4.7)
[2018-12-11] MEDS: Ascorbic Acid 500 mg Chewable Tablet PO SCH (09:56)
[2018-12-11] MEDS: Dutasteride 0.5 MG CAP PO SCH (09:57)
[2018-12-11] MEDS: Docusate Calcium (SURFAK) 240 MG CAP PO SCH (09:57)
[2018-12-11] MEDS: Amiodarone 200 MG TAB PO SCH (09:57)
[2018-12-11] MEDS: Ferrous Sulfate 325 MG TAB PO SCH (09:57)
[2018-12-11] MEDS: Midodrine HCl 5 MG TAB PO SCH (09:57)
[2018-12-11] MEDS: Aspirin Chewable 81 MG TAB PO SCH (09:57)
[2018-12-11] MEDS: Metoprolol Tartrate 25 MG TAB PO SCH (09:58)
[2018-12-11] MEDS: Tamsulosin HCl 0.4 MG CAP PO SCH (09:58)
[2018-12-11] MEDS: Furosemide 20 MG TAB PO SCH (09:58)
[2018-12-11] MEDS: Gabapentin 100 MG CAP PO SCH (09:58)
[2018-12-11] MEDS: Famotidine/PF 20 mg/2ml Vial SLOW IVP SCH (10:10)
[2018-12-11] MEDS ORDERED: Norepinephrine 16 MG in Dextrose 5% in Water 234 ML IVPB SCH (10:30)
[2018-12-11 11:08] LABS: #Lymphocytes 0.4 thou/uL (1.20-3.40); #Monocytes 0.7 thou/uL (0.11-0.59); #Neutrophils 10.1 thou/uL (1.40-6.50); %Eosinophils 0.2 % (0.0-10.0); %Lymphocytes 3.8 % (21.0-51.0); %Monocytes 5.9 % (0.0-10.0); %Neutrophils 90.1 % (42.0-75.0); Hemoglobin 9.5 g/dL (14.0-18.0); Mean Corpuscular HGB CONC 32.3 g/dL (32.0-36.0); Mean Corpuscular Hemoglobin 32.9 pg (27.0-31.0); Mean Platelet Volume 8.4 fL (7.4-10.4); Platelet Count 156 thou/uL (130-400); RBC Distribution Width 16.5 % (11.5-14.5); White Blood Cell (WBC) Count 11.2 thou/uL (4.8-10.8)
[2018-12-11 11:29] LABS: Anion Gap 24 mmol/L (10-20); BUN (Urea Nitrogen) 34 mg/dL (8.4-25.7); Calc. Creatinine Clearance 47 mL/min (70-130); Calcium 8.1 mg/dL (7.8-10.44); Carbon Dioxide 15 mmol/L (23-31); Chloride 98 mmol/L (98-107); Estimated GFR-MDRD 65; Glucose 121 mg/dL (83-110); Potassium 4.9 mmol/L (3.5-5.1); Sodium 132 mmol/L (136-145)
[2018-12-11] MEDS ORDERED: Hydrocortisone Sod Succ/PF 100 mg/2 ml Vial IVP SCH (12:00)
[2018-12-11 12:04] LABS: CKMB 2.9 ng/mL (0-6.6)
--- NOTE | 2018-12-11 12:11 | CON ---
DATE OF CONSULTATION: HISTORY OF PRESENT ILLNESS: Mr. Jacobo is an 83-year-old gentleman, cachectic, 5 feet 5 inches, 140 pounds, who apparently was in the telemetry unit and developed an episode of respiratory distress, apparently stopped breathing as per the nurses. He was short of breath last night at 0348 hours. X-ray was ordered, which showed what appeared to be right-sided infiltrate and probably a pleural effusion. He was given some Lasix 40, Ventimask, and blood gases were obtained. He then proceeded this morning to have respiratory arrest, his sats are apparently 92% on 40%. He was intubated and transferred to the ICU, the reason for consultation. for most of his life, he has multiple medical issues. He was recently at this institute when he sustained a fall and fractured his hip. He apparently was recuperating there. His last echocardiogram done shows that his EF is about 25%, global hypokinesia, severe aortic stenosis, regurgitation. PAST MEDICAL HISTORY: Otherwise, pertinent for cardiac arrhythmias, multiple myeloma, CHF, reflux, BPH, advanced age. PREVIOUS SURGERIES: AICD, treatment for multiple myeloma, treatment for recent left femur fracture. He has been seen by Oncology in the past. He has multiple issues including pancytopenia and hypercalcemia which were addressed at one time. His CT-guided bone marrow biopsy 7 months ago consistent with myeloma. HOME MEDICATIONS: Include, 1. Valtrex. 2. Tramadol. 3. Flomax 0.4. 4. Amiodarone 5 three times a day. 5. Metoprolol 25. 6. Melatonin. 7. Lasix 20. 8. Dexamethasone 6 mg every 7 days. 9. Ascorbic acid. 10. Cordarone 200 a day. ALLERGIES: OPIOIDS, MORPHINE. SOCIAL HISTORY: Tobacco, former smoker. REVIEW OF SYSTEMS: Otherwise unobtainable. He is intubated. PHYSICAL EXAMINATION: VITAL SIGNS: Blood pressure 90/60, pulse 98, respirations are 30. He is afebrile. HEENT: Pupils are 2 mm. NEUROLOGIC: He is moving all 4 extremities. GENERAL: He looks cachectic. CHEST: Decreased breath sounds. Extensive rhonchi and crackles. . ABDOMEN: Soft. LABORATORY DATA: Urine shows gram-negative rods. X-ray repeated this morning at 0910 hours shows cardiomegaly, AICD, and evidence of bilateral infiltrates left greater than right. IMPRESSION: Respiratory failure, probably remote etiology, most likely coronary artery disease, congestive heart failure, pneumonia, renal failure, multiple myeloma, probably chronic obstructive pulmonary disease, urinary tract infection, anemia with H and H of 7 and 24. PLAN: Continue present treatment. Await input from Cardiology. Supportive care. PT. Prognosis is grave. I have added steroids, neb treatments, and pressors. 45 minutes of critical time. Job ID: [id number]
--- NOTE | 2018-12-12 03:37 | DIS ---
DATE OF ADMISSION: 12/11/2018 DATE OF DISCHARGE: 12/11/2018 DATE OF : 12/11/2018. ADMITTING DIAGNOSES: 1. Recurrent chest pain. 2. Right pleural effusion. 3. Anxiety. 4. Hypertension. 5. Congestive heart failure. FINAL DIAGNOSES: 1. Congestive heart failure. 2. 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 3. Coronary artery disease. 4. Pacemaker/AICD. 5. History of ventricular fibrillation. 6. Multiple myeloma. 7. Anemia, multifactorial. 8. BPH. 9. Gastroesophageal reflux disease. 10. Compression fractures. 11. Status post coronary artery bypass graft x5. CONSULTANTS: Dr. Ryan Branham Pulmonary/Critical Care. Dr. Mumtaz Lilly, Cardiology Service. HOSPITAL COURSE: The patient was an 83-year-old male, who was admitted to the hospital with complaints of sudden onset chest pain which woke him up from the sleep. The pain lasted approximately 15 minutes, was rated at 10 on a scale from 1-10 in severity. It eventually was about 4/10 after he was given nitroglycerin at [facility] where he had recently been. The pain was stabbing in nature and nonradiating and located in the center of the chest. He had similar episodes of chest pain in July, during which time he was found to have IN. He denied having any increased shortness of breath, cough, hemoptysis, abdominal pain, or cramping. He did report issues with dysuria requiring a catheter placement due to urinary retention and hematuria. Also, he stated that he was under a lot of stress during his relation to his daughter. Also, he had a fall early November resulting in the left intertrochanteric femur fracture for which he underwent TFN on 11/28/2018. During emergency room evaluation, his white count was 5.1, hemoglobin was 8, hematocrit 24.1, platelet count was 149,000. Sodium 131, potassium 4.6, chloride 96, anion gap 15, BUN 33, creatinine 0.85, glucose 114, calcium 8.4, total bilirubin 0.8, AST 56, ALT 47, alkaline phosphatase 161. CK was 28, troponin 0.016, 1st set, 0.041 the 2nd. Total protein was 7.3, albumin 2.64, and lipase was 14. Urinalysis showed turbid urine, pH of 7, protein equal to or greater than 300, ketones 15, blood large, nitrite positive, bilirubin small, leukocyte esterase small, red blood cells greater than 50, white blood cells 7-10, bacteria 1+. Chest x-ray showed new infiltrate or atelectasis in the right lung base. Numerous osseous lesions were noted. CT angiogram of the chest did not show any pulmonary embolism. There was right pleural effusion and right basal atelectasis or infiltrate with consolidation, was also largely fixed diaphragmatic hernia. Echocardiogram which was done on 11/28/2018 showed LVEF estimated at 25% to 30% along with a kinetic motion of the inferior wall noted in the left ventricle, global hypokinesia, moderate mitral regurgitation, ldtbjiih-ul-smhqsf aortic regurgitation, and vrewsuzj-[id number]-xwwnlg tricuspid regurgitation. The patient got admitted to telemetry floor. Apparently, he had multiple MIs in the past. First two troponins were basically negative. EKG did not show any evidence that he is developing some coronary syndrome. His ventricular pacer was working. The patient was given one dose of Rocephin because it was not really clear what was the etiology of the right pleural effusion, although it was thought that mainly is most likely related to some . The patient went into respiratory distress at night. Inhouse hospitalist was called in and the chest x-ray was done, which showed evidence of congestive heart failure. The patient was treated with O2 by Ventimask and IV Lasix. His condition got worse in the morning when he was supposed to be transferred to the intensive care unit for BiPAP treatment, but suddenly he became pulseless and he was coded. He was intubated and transferred to intensive care unit for further management, he was given IV fluids and vasopressors since his blood pressure was running on the lower side. Telemetry Monitor/occupancy specialist, Dr. Branham saw the patient along with Dr. Lilly, cosmetician, who saw the patient the day before cardiology evaluation. Both of them met with the daughter and palliative care consultation was done. The patient was changed to do not resuscitate status and at 1152 hours, he went gradually to bradycardia then to asystole and the support was turned off later, and the body was released to the home. Job ID: [id number]
--- NOTE | 2018-12-13 08:09 | EKG ---
Test Reason : CODE BLUE Blood Pressure : / mmHG Vent. Rate : 092 BPM Atrial Rate : 178 BPM P-R Int : 000 ms QRS Dur : 180 ms QT Int : 418 ms P-R-T Axes : 000 160 -29 degrees QTc Int : 516 ms Atrial fibrillation Right bundle branch block Abnormal ECG Probable injury patterns inferior leads. ST depression lateral leads Confirmed by DR. Glory WANG ([id number]) on 12/13/2018 8:09:42 AM Referred By: XAVIER Confirmed By:DR. Glory WANG
[2018-12-16] MEDS ORDERED: Dexamethasone 4 MG TAB PO SCH (08:00)
--- NOTE | 2018-12-18 07:43 | PQF ---
[employer] Fuel Cell Repairer Crystal Reports Winform ViewerLAFORCE,GM WEBBER MD [id number] CLINICAL DOCUMENTATION CLARIFICATION FORM: POST DISCHARGE Addendum to original discharge summary date: ____ Late entry note date: __ DATE: 12/18/2018 ATTN: GM ROWELL MD Please exercise your independent, professional judgment in responding to the clarification form. Clinical indicators are provided on the bottom of this form for your review Please check appropriate box(s): HEART FAILURE: A. TYPE: [ ] Systolic / HFrEF [ ] Diastolic / HFpEF [ ] Combined Systolic / Diastolic B. ACUITY [ ] Acute [ ] Acute on Chronic [ ] Chronic [ ] Other diagnosis [ ] Unable to determine For continuity of documentation, please document condition throughout progress notes and discharge summary. Thank You. CLINICAL INDICATORS - SIGNS / SYMPTOMS / LABS Right Pleural effusion and right basilar atelectasis or infiltrate with consolidation-H&P, pg 02, 12/10, Skye Buckley PA-C Echo : EF 25% to 30%, akinetic motion of the inferior wall noted in left ventricle, global hypokinesis, Moderate to severe aortic regurgitation and moderate severe tricuspid regurgitation-H&P, pg 02, 12/10, Skye Buckley PA-C BNP: 2507.0 H, 0.215 H-Laboratory, 12/10, 12/11 Congestive heart failure-DS, pg1, 12/11, Sagrario Knox MD Cardiomyopathy with LVEF of 25%-DS, pg1, 12/11, Sagrario Knox MD RISKS: Coronary artery disease-Consultation, pg2, 12/11, Dirk Kirk MD Right Pleural effusion-DS, pg1, 12/11, Sagrario Knox MD s/p Coronary artery bypass graft X5-DS, pg1, 12/11, Sagrario Knox MD Hypertension- DS, pg1, 12/11, Sagrario Knox MD TREATMENTS: Echocardiogram-12/11 by Maribeth Brooks Consulted: Cardiology service: Dr. Gm Rowell-GISEL, pg1, 12/11, Sagrario Knox MD Treated with O2 by ventimask and IV lasix-GISEL, pg2, 12/11, Sagrario Knox MD [employer]airer [employer] Winform Viewer (This form is maintained as a part of the permanent medical record) 2014 [email or web address]. All Rights Reserved Jesus Malave [not provided] [not provided] MTDD
--- NOTE | 2018-12-18 07:53 | PQF ---
[employer] Referral Coordinator Crystal Reports Winform ViewerLAFORCE,RYAN Modi MANDA ARNDT MD [id number] [facility] [id number] CLINICAL DOCUMENTATION CLARIFICATION FORM: POST DISCHARGE Addendum to original discharge summary date: ____ Late entry note date: __ DATE: 12/18/2018 ATTN: MANDA ARNDT MD Please exercise your independent, professional judgment in responding to the clarification form. Clinical indicators are provided on the bottom of this form for your review Please check appropriate box(s): [ ] Acute Respiratory Failure: [ ] with Hypoxia[ ] with Hypercapnia [ ] Acute On Chronic Respiratory Failure: [ ] with Hypoxia [ ] with Hypercapnia [ ] Acute Respiratory Failure due to: (etiology) [ ] ARDS (Acute Respiratory Distress Syndrome) [ ] Chronic Respiratory Failure only [ ] with Hypoxia [ ] with Hypercapnia [ ] Other diagnosis [ ] Unable to determine In addition, please specify: Present on Admission (POA): [ ] Yes [ ] No [ ] Unable to determine For continuity of documentation, please document condition throughout progress notes and discharge summary. Thank You. CLINICAL INDICATORS - SIGNS / SYMPTOMS / LABS Respiratory failure-Consultation, pg2, 12/11, Dirk Kirk MD O 2 Sat- 92% L- Vital signs, 12/11 pt went into respiratory distress at night-DS, pg2, 12/11, Sagrario Knox MD There was right pleural effusion and right basal atelectasis or infitrate with consolidation-DS, pg2, 12/11, Sagrario Knox MD His sats are appently 92% on 40%-Consultation, pg1, 12/11, Dirk Kirk MD morning to have respiratory arrest-Consultation, pg1, 12/11, Dirk Kirk MD chest: Decreased breath sounds, extensive rhonchi and crackles- Consultation, pg2, 12/11, Dirk Kirk MD Pulse: 98, RR: 30-Consultation, pg2, 12/11, Dirk Kirk MD RISK FACTORS Right Pleural effusion-DS, pg1, 12/11, Sagrario Knox MD Right basilar atelectasis or infiltrate with consolidation-H&P, pg 02, 12/10 Pneumonia, probable COPD-Consultation, pg2, 12/11, Dirk Kirk MD TREATMENTS: MTDD
--- NOTE | 2018-12-18 08:24 | PQF ---
[facility] Emergency Doctor Crystal Reports Winform ViewerLAFORCE,RYAN Modi EDER PARK MD [id number] CLINICAL DOCUMENTATION CLARIFICATION FORM: POST DISCHARGE Addendum to original discharge summary date: ____ Late entry note date: __ Date: 12/18/2018 ATTN: EDER PARK MD Please exercise your independent, professional judgment in responding to the clarification form. Clinical indicators are provided on the bottom of this form for your review Please check appropriate box(s): [ ] Protein Calorie Malnutrition: [ ] Mild [ ] Moderate [ ] Severe [ ] Other Malnutrition (please specify) __ [ ] Underweight without malnutrition [ ] Cachexia [ ] Other diagnosis [ ] Unable to determine In addition, please specify: Present on Admission (POA): [ ] Yes [ ] No [ ] Unable to determine CLINICAL INDICATORS - SIGNS / SYMPTOMS / LABS Cachetic appearing with generalized muscle wasting-H&P, pg 02, 12/10, Skye Buckley PA-C renal failure-Consultation, pg2, 12/11, Dirk Kirk MD Anemia with H and H of and -Consultation, pg2, 12/11, Dirk Kirk MD Albumin: 2.6L, Laboratory 12/09, PU Sacrococcygeal stage 2-Nursing assessment 12/10 @1945 BMI:23.9-Vital signs, 12/10 Cachectic , 5 feet 5 inches, 140 pounds-Consultation, pg1, 12/11, Dirk Kirk MD Pt reports losing weight in the past d/t the cancer- 12/10, [facility] Nutrition Services Assessment Severe muscle wasting and fat loss to temporal and orbital regions- 12/10, [facility] Nutrition Services Assessment RISK FACTORS Anemia with H and H of 7 and 24-Consultation, pg212/11, Dirk Aparicio renal failure-Consultation, pg2, 12/11, Dirk Kirk MD pneumonia-Consultation, pg12/11, Dirk Kirk MD TREATMENT: Drinks minimum of 3 ensures daily-12/10, Food & Nutrition Services Assessmentt Sodium chloride.IV- 12/10 Moderate Malnutrition (in acute illness) Energy Intake: <75% of estimated energy requirement for > 7 days Weight Loss: 1-2%/1 week; 5%/ 1 month; 7.5%/3 months Other: mild body fat loss; mild muscle mass loss; mild fluid accumulation; Severe Malnutrition (in acute illness) Energy Intake: < 50% of estimated energy requirement for > 5 days Weight Loss: >1-2%/1 week; >5%/1 month; >7.5%/3 months Other: moderate body fat loss; moderate muscle mass loss; moderate- severe fluid accumulation; measurably reduced cake knocker strength Moderate Malnutrition (in chronic illness) Energy Intake: <75% of estimated energy requirement for >1 month Weight Loss: 5%/1 month; 7.5%/3 months; 10%/6 months; 20%/1 year Other: mild body fat loss; mild muscle mass loss; mild fluid accumulation Severe Malnutrition (in chronic illness) Energy Intake: <75% of estimated energy requirement for >1 month Weight Loss: >5%/1 month; >7.5%/3 months; >10%/6 months; >20%/1 year Other: severe body fat loss; severe muscle mass loss; severe fluid accumulation ; measurably reduced cake knocker strength [employer] Emergency Doctor Crystal Reports Winform Viewer (This form is maintained as a part of the permanent medical record) 2014 [employer]. All Rights Reserved Jesus Malave [not provided] [not provided] MARIAH
--- NOTE | 2018-12-18 08:43 | PQF ---
[employer] Crystal Reports Winform ViewerLAHOCKLEY,EDER BERG MD [id number] CLINICAL DOCUMENTATION CLARIFICATION FORM: POST DISCHARGE Addendum to original discharge summary date: ____ Late entry note date: __ DATE: 12/18/2018 ATTN: EDER PARK MD Please exercise your independent, professional judgment in responding to the clarification form. Clinical indicators are provided on the bottom of this form for your review Please check appropriate box(s): [ ] Acute Renal Failure (ARF) / Acute Kidney Injury (HAYDEN) [ ] Acute Tubular Necrosis (ATN) [ ] Other Etiology or underlying conditions related to the diagnosis of ARF/ HAYDEN: [ ] Acute Interstitial Nephritis (AIN) [ ] Other: [ ] Acute on Chronic Renal Failure please specify Stage of CKD (see below) [ ] CKD without ARF/HAYDEN please specify Stage of CKD [ ] Other diagnosis [ ] Unable to determine In addition, please specify: Present on Admission (POA): [ ] Yes [ ] No [ ] Unable to determine National Kidney Foundation Guidelines for CKD Staging Stage I Kidney damage with normal or increased GFRGFR > 90 Stage IIKidney damage with mildly decreased GFRGFR 60-89 Stage III Kidney damage with moderately decreased GFRGFR 30-59 Stage IVKidney damage with severely decreased GFRGFR 16-29 Stage VKidney failureGFR<15 ESRDEnd Stage Renal DiseaseOn dialysis Acute Renal Failure/Acute Kidney Failure defined as: Renal failure-Consultation , 12/11, Dirk Kirk MD For continuity of documentation, please document condition throughout progress notes and discharge summary. Thank You. CLINICAL INDICATORS - SIGNS / SYMPTOMS / LABS Renal failure-Consultation , 12/11, Dirk Freeman BUN: 34H, Cr: 1.08-Laboratory , 12/11 GFR: greater than 90-Laboratory , 12/10 RISK FACTORS Hypertension,Congestive heart failure-DS,pg1, 12/11, EDER PARK MD TREATMENTS: Sodium chloride.IV- MAR, 12/10 [employer] Crystal Reports Winform Viewer (This form is maintained as a part of the permanent medical record) 2014 [employer]. All Rights Reserved Jesus Malave [not provided] [not provided] MTDD
--- NOTE | 2018-12-19 07:31 | CON ---
DATE OF CONSULTATION: 12/11/2018 HISTORY OF PRESENT ILLNESS: Mr. Jacobo unfortunately coded. He was on the floor. His heart rate decreased and became bradycardic. He was seen and evaluated in the ICU. He was responding to voice initially. Blood pressure was 80s over 50s. PERTINENT LABORATORY DATA: Include a hemoglobin of 9.5, hematocrit 29.5. Creatinine 1.08. Peak troponin 0.2. PHYSICAL EXAMINATION: GENERAL: He is currently intubated and somewhat sedated. NEUROLOGIC: The patient is alert and oriented x3 with no focal neurologic deficits. HEENT: Sclerae without icterus. Mouth has moist mucous membranes with normal pallor. NECK: No JVD. Carotid upstroke brisk. No bruits bilaterally. LUNGS: Clear to auscultation with unlabored respirations. BACK: No scoliosis or kyphosis. CARDIAC: Regular rate and rhythm with normal S1 and S2. No S3 or S4 noted. No significant rubs, murmurs, thrills, or gallops noted throughout the precordium. PMI is not displaced. There is no parasternal heave. ABDOMEN: Soft, nontender, nondistended. No peritoneal signs present. No hepatosplenomegaly. No abnormal striae. EXTREMITIES: 2+ femoral and 2+ dorsalis pedis pulses. No cyanosis, clubbing, or edema. SKIN: No gross abnormalities. IMPRESSION: 1. Cardiopulmonary arrest. 2. Coronary artery disease. 3. Status post bypass surgery. RECOMMENDATIONS: Mr. Jacobo and his daughter to discuss the events, that transpired. The patient had bypass surgery 22 years ago. He underwent coronary angiography within the last year. Those results were not available at the time. I discussed the gravity of his current condition. We discussed DNR status. His daughter states that they would consider it. They are going to have further discussions with Dr. Ryan Branham. At this point, we will continue conservative therapy. Continue to monitor his CKs and troponins. This may have been a primary cardiac event. Acute on chronic systolic heart failure. At this point, we will continue with resuscitative support. The patient's status appears poor. I did spend 40 minutes of critical care time. I discussed the case with the primary team in addition to sitting down with his daughter and discussing the gravity of the events. Job ID: [id number]
--- NOTE | 2018-12-23 17:15 | EKG ---
Test Reason : Blood Pressure : / mmHG Vent. Rate : 086 BPM Atrial Rate : 086 BPM P-R Int : 138 ms QRS Dur : 178 ms QT Int : 446 ms P-R-T Axes : 090 048 029 degrees QTc Int : 533 ms Electronic ventricular pacemaker Confirmed by KENNA PIERSON ([id number]), editorial clerk SAMEERA BURT ([id number]) on 12/23/2018 5:15:10 PM Referred By: Confirmed By:KENNA PIERSON
== END 2018-12-11 11:52 | disposition expired | DRG 291 ==
LOC: ERS 20:30 → 2NO 23:00 → CCU 12-11 09:03 → OBSVTOIN 12-11 09:32
PROVIDERS: ADMIT Hospitalist; ATTEND Hospitalist
PROC: 5A12012 Performance of Cardiac Output, Single, Manual (ICD-10-PCS; principal; 2018-12-11)
PROC: 0BH17EZ Insertion of Endotracheal Airway into Trachea, Via Natural or Artificial Opening (ICD-10-PCS; 2018-12-11)
PROC: 5A1935Z Respiratory Ventilation, Less than 24 Consecutive Hours (ICD-10-PCS; 2018-12-11)
PROC: 3E033XZ Introduction of Vasopressor into Peripheral Vein, Percutaneous Approach (ICD-10-PCS; 2018-12-11)
DX: I11.0 Hypertensive heart disease with heart failure (principal); J96.90 Respiratory failure, unspecified, unspecified whether with hypoxia or hypercapnia; J18.9 Pneumonia, unspecified organism; C90.00 Multiple myeloma not having achieved remission; J90 Pleural effusion, not elsewhere classified; N39.0 Urinary tract infection, site not specified; J98.11 Atelectasis; Z66 Do not resuscitate; Z51.5 Encounter for palliative care; I50.9 Heart failure, unspecified; I42.9 Cardiomyopathy, unspecified; I25.10 Atherosclerotic heart disease of native coronary artery without angina pectoris; D64.9 Anemia, unspecified; N40.0 Benign prostatic hyperplasia without lower urinary tract symptoms; K21.9 Gastro-esophageal reflux disease without esophagitis; F80.89 Other developmental disorders of speech and language; I46.9 Cardiac arrest, cause unspecified; I35.0 Nonrheumatic aortic (valve) stenosis; F41.9 Anxiety disorder, unspecified; I49.01 Ventricular fibrillation; K44.9 Diaphragmatic hernia without obstruction or gangrene; Z95.0 Presence of cardiac pacemaker; Z95.1 Presence of aortocoronary bypass graft; I25.2 Old myocardial infarction; Z98.41 Cataract extraction status, right eye; Z91.81 History of falling; Z98.890 Other specified postprocedural states; Z79.82 Long term (current) use of aspirin; Z79.899 Other long term (current) drug therapy; Z92.21 Personal history of antineoplastic chemotherapy
CPT/HCPCS: 36415; 36416; 71045; 71275; 80048; 81003; 81015; 82533; 82550; 82553; 82805; 83690; 83735; 83880; 84100; 84145; 84484; 85025; 87077; 87086; 87186; 93005; 93010; 94002; 94640; 96365; J0692; J0696; J1940; J2704; J3370; J3490; J7070; J7620; Q9966; S0028